=== PATIENT | male | born 1935 | race Caucasian/White ===

== ENCOUNTER → 2018-04-15 10:36 | Outpatient (CLI) | payer OTHER, SELFPAY ==
[2018-04-15 11:15] LABS: INR 2.4 (0.9-1.3); Prothrombin Time 25.6 SECONDS (10.1-12.7)
== END ==
PROVIDERS: PCP Family Medicine; Visit Provider Family Medicine
DX: Z86.718 Personal history of other venous thrombosis and embolism (principal)
CPT/HCPCS: 85610

== ENCOUNTER → 2018-05-20 11:56 | Outpatient (CLI) | payer OTHER, SELFPAY ==
[2018-05-20 12:50] LABS: Prothrombin Time 32.8 SECONDS (10.1-12.7)
== END ==
PROVIDERS: PCP Family Medicine; Visit Provider Family Medicine
DX: Z86.718 Personal history of other venous thrombosis and embolism (principal); I48.91 Unspecified atrial fibrillation
CPT/HCPCS: 36415; 85610

== ENCOUNTER → 2018-06-03 11:50 | Outpatient (CLI) | payer OTHER, SELFPAY ==
[2018-06-03 13:28] LABS: INR 1.9 (0.9-1.3)
== END ==
PROVIDERS: PCP Family Medicine; Visit Provider Family Medicine
DX: I48.91 Unspecified atrial fibrillation (principal)
CPT/HCPCS: 36415; 85610

== ENCOUNTER → 2018-06-10 11:27 | Outpatient (CLI) | payer OTHER, SELFPAY ==
[2018-06-10 12:31] LABS: INR 1.8 (0.9-1.3); Prothrombin Time 19.9 SECONDS (10.1-12.7)
== END ==
PROVIDERS: PCP Family Medicine; Visit Provider Family Medicine
DX: I48.2 Chronic atrial fibrillation (principal); Z86.718 Personal history of other venous thrombosis and embolism
CPT/HCPCS: 36415; 85610

== ENCOUNTER → 2018-06-22 15:26 | Outpatient (CLI) | payer OTHER, SELFPAY ==
[2018-06-22 17:08] LABS: INR 3.4 (0.9-1.3); Prothrombin Time 37.5 SECONDS (10.1-12.7)
== END ==
PROVIDERS: PCP Family Medicine; Visit Provider Family Medicine
DX: Z86.718 Personal history of other venous thrombosis and embolism (principal); I48.2 Chronic atrial fibrillation
CPT/HCPCS: 36415; 85610

== ENCOUNTER → 2018-07-01 11:47 | Outpatient (CLI) | payer OTHER, SELFPAY ==
[2018-07-01 14:01] LABS: INR 2.1 (0.9-1.3)
== END ==
PROVIDERS: PCP Family Medicine; Visit Provider Family Medicine
DX: Z86.718 Personal history of other venous thrombosis and embolism (principal); I48.91 Unspecified atrial fibrillation
CPT/HCPCS: 36415; 85610

== ENCOUNTER → 2018-07-23 12:31 | Outpatient (CLI) | payer OTHER, SELFPAY ==
[2018-07-23 13:02] LABS: INR 2.3 (0.9-1.3); Prothrombin Time 25.2 SECONDS (10.1-12.7)
== END ==
PROVIDERS: PCP Family Medicine; Visit Provider Family Medicine
DX: I48.91 Unspecified atrial fibrillation (principal)
CPT/HCPCS: 36415; 85610

== ENCOUNTER → 2018-08-20 15:01 | Outpatient (CLI) | payer OTHER, SELFPAY ==
[2018-08-20 15:21] LABS: INR 2.5 (0.9-1.3); Prothrombin Time 27.6 SECONDS (10.1-12.7)
== END ==
PROVIDERS: PCP Family Medicine; Visit Provider Student in an Organized Health Care Education/Training Program
DX: I48.91 Unspecified atrial fibrillation (principal)
CPT/HCPCS: 36415; 85610

== ENCOUNTER 2018-08-31 10:24 | Emergency (ER) | payer OTHER, SELFPAY ==
[2018-08-31] VITALS (29 sets, daily range): BP systolic 85–113; BP diastolic 58–85; PULSE 53–142; RESP 12–22; TEMP 37; O2SAT 94–100
--- NOTE | 2018-08-31 10:42 | DI.RAD.S_ITS ---
PROCEDURE: XR CHEST 1V INDICATIONS: chest pain TECHNIQUE: One view of the chest was acquired. COMPARISON: [facility], CT, PE STUDY (CTA CHEST), 11/05/2013, 17:46. [facility], CR, CHEST 1 VIEW, 12/03/2010, 12:36. [facility], CR, CHEST 1 VIEW, 11/05/2013, 16:13. [facility], , CHEST 1 VIEW, 02/13/2016, 19:44. FINDINGS: Surgical changes and devices: None. Lungs and pleura: No pleural effusions or pneumothorax. Lungs are clear. Mediastinum: The cardiac contours are within normal limits. The aorta demonstrates calcification and tortuosity. Bones and chest wall: Age-appropriate bony degenerative changes are seen. No suspicious bony lesions. Overlying soft tissues appear unremarkable. IMPRESSION: Unremarkable portable chest for age. Dictated by: Bhaskar García M.D. on 08/31/2018 at 10:04 Approved by: Bhaskar García M.D. on 08/31/2018 at 10:05
--- NOTE | 2018-08-31 10:44 | ED_ITS ---
HPI - Arrhythmia/Palpitations General Chief Complaint: Arrhythmia/Palpitations Stated Complaint: AFIB Time Seen by Provider: 08/31/18 10:43 Source: patient and family Mode of arrival: ambulatory Limitations: no limitations History of Present Illness HPI narrative: Pt c/o his atrial fibrillation acting up again. He has a long- standing history of this, and has been cardioverted several times, due to hypotension (though pt states his blood pressure is always in the low range). Pt began to feel a sense of palpitations about an hour ago. No CP or SOB. No n /v. Otherwise, pt has been feeling well. MD complaint: palpitations Onset (ago): hour(s) Duration: constant Severity: mild Context: occurred during rest Arrhythmia history: atrial fibrillation, on anti-coagulants and history of electrical cardioversion Associated symptoms: denies other symptoms Treatments prior to arrival: other (none) Related Data Home Medications Medication Instructions Recorded Confirmed dorzolamide-timolol 1 drp OPHTHALMIC (EYE) BID 08/31/18 08/31/18 latanoprost 1 drp OPHTHALMIC (EYE) BEDTIME 08/31/18 08/31/18 simvastatin 20 mg PO QPM 08/31/18 08/31/18 warfarin [Coumadin] 2.5 mg PO MOFR 08/31/18 08/31/18 warfarin [Coumadin] 5 mg PO SUTUWETHSA 08/31/18 08/31/18 Allergies Allergy/AdvReac Type Severity Reaction Status Date / Time No Known Drug Allergies Allergy Verified 08/27/18 15:06 Review of Systems Review of Systems All systems reviewed & are unremarkable except as noted in HPI and below Constitutional Denies chills, Denies fever(s), Denies lethargy and Denies weakness Eyes Denies change in vision, Denies eye discharge, Denies irritation and Denies loss of vision ENT Ears, Nose, Mouth, and Throat: Denies change in voice, Denies neck pain and Denies sore throat Cardiovascular Denies chest pain, Denies irregular heart rhythm, Denies lightheadedness, Reports palpitations, Denies dyspnea, Denies dyspnea on exertion and Denies orthopnea Respiratory Denies cough, Denies dyspnea, Denies dyspnea on exertion and Denies wheezing Gastrointestinal Gastrointestinal: Denies abdominal pain, Denies change in bowel habits, Denies diarrhea, Denies nausea and Denies vomiting Genitourinary Denies hematuria, Denies flank pain, Denies urinary incontinence and Denies urinary urgency Musculoskeletal Denies neck pain Integumentary/Breasts Denies pruritus, Denies erythema, Denies rash and Denies wounds Neurologic Denies confusion, Denies loss of vision and Denies weakness Psychiatric Denies anxiety, Denies confusion, Denies depression, Denies homicidal ideation and Denies suicidal ideation Endocrine Reports palpitations Hematologic/Lymphatic Denies easy bruising Allergic/Immunologic Denies wheezing [facility] Medical History Atrial fibrillation (Chronic 2009) Coronary artery disease (Chronic) Factor V Leiden (Chronic) Hyperlipidemia (Chronic) Hypothyroidism (Chronic) Low back pain (Chronic) Osteoarthritis (Chronic ~2015) Polyneuropathy (Chronic 1991) Sleep apnea (Chronic 2003) Acne (Resolved) Basal cell carcinoma (Resolved) CHF (congestive heart failure) (Resolved ~01/2012) Cataracts, bilateral (Resolved 1997) Colon polyps (Resolved 09/2008) Hx of deep venous thrombosis (Resolved) Prostate cancer (Resolved 2000) Retinal detachment (Resolved ~1992) Skin cancer (Resolved) Surgical History Hx of colonoscopy with polypectomy (Resolved 09/2008) Hx of detached retina repair (Resolved ~1992) History of cataract removal with insertion of prosthetic lens (1997) Status post hernia repair (1999) Status post radical cystoprostatectomy (2000) Family History Brother Heart disease Brother Cancer Sister No problems noted. Father Cancer Mother No problems noted. Social History Smoking Status: Never smoker alcohol intake: never substance use type: does not use Exam Initial Vital Signs Initial Vital Signs: Vital Signs Temperature 98.6 F 08/31/18 10:25 Pulse Rate 138 H 08/31/18 10:25 Respiratory Rate 18 08/31/18 10:25 Blood Pressure 105/70 08/31/18 10:25 Pulse Oximetry 98 08/31/18 10:25 Const General: cooperative and well developed Nutritional Appearance: well nourished Orientation: alert, awake, oriented x3 and not confused HENMT Head: normocephalic and atraumatic Ears: external ears normal and TM's normal bilaterally Nose: external nose normal and No nasal discharge Face and sinus: sinuses nontender, face symmetric, no sinus tenderness and No dry mucous membranes Mouth: oral mucosae normal and moist mucous membranes Teeth and gingiva: dentition normal Throat: tonsils normal and uvula midline Eyes General: appearance normal, both eyes and all related structures Eyelids: eyelids normal Conjunctivae: conjunctivae normal Sclera: sclerae normal Pupils: PERRL EOM: EOM intact bilaterally Neck Neck: normal visual inspection, trachea midline, No lymphadenopathy, No midline deformity and No JVD Lymphatic: No lymphedema Chest Chest: normal inspection of the chest Resp Effort & Inspection: normal respiratory effort, able to speak in complete sentences, no respiratory distress and no use of accessory muscles Auscultation: clear to auscultation bilaterally, no rales, no rhonchi and no wheezes Cardio Rate: tachycardic Rhythm: abnormal rhythm irregularly irregular Heart Sounds: no click, no gallops, no murmurs and no rubs Pulses: normal peripheral pulses GI Inspection: non-distended Palpation: soft, no hepatosplenomegaly, No guarding, No pulsatile mass and No tender Auscultation: normal bowel sounds Back/Spine/Pelvis Back: No CVA tenderness Cervical Spine: cervical ROM normal and No pain with cervical ROM Thoracic/Lumbar Spine: thoracic and lumbar spine normal to inspection Skin General: no rashes or lesions noted, No jaundice and No petechiae Neuro General: alert, oriented x3, gait normal and no focal motor deficits Speech: speech normal Extrem General: full ROM, no clubbing, cyanosis or edema, no pedal edema and no calf tenderness Psych Appearance: well kempt Mental Status: mental status grossly normal Attitude: cooperative Thought Content: normal and suicidality Judgment: judgment good Procedures Cardioversion Indication: Unstable a. fib with RVR. Cardiac rhythm prior to cardioversion: atrial fibrillation with RVR. Stability: Unstable ASA Class: I Preparation: satellite project site monitor applied, pulse oximeter, capnometry used, supplemental O2 applied, suction/airway equipment at bedside and IV secured Midazolam: IV Midazolam Dose: 5 (2.5 + 2.5 mg) Total Time of Sedation (Min): 10 Number of attempts (shocks): 1 Joules used: 50 ED Sedation Level: Moderate (Concious) Cardiac rhythm post-cardioversion: NSR Patient tolerated procedure sedation: Well Complications sedation: none Additional Comments: RT at bedside. Course Course Narrative: PT was treated with IV fluids, and once the SBP was above 100 , pt was treated with small doses of diltiazem. Pt did initially respond well, but rate crept back up repeatedly, and pt did not convert to NSR. Given that he has a h/o paroxysmal a. fib, I felt pt should be cardioverted, and the pt had repeatedly expressed the desire for this, as well. Pt was cardioverted with 50 joules after sedation with Versed, after which he immediately converted to NSR. Pt was observed in the ED until the Versed had worn off. Pt remained stable during this time, and was cleared for discharge. Orders Ordered: Discontinued Medications Diltiazem HCl (Cardizem) 5 mg IV NOW ONE Stop: 08/31/18 11:11 Last Admin: 08/31/18 11:12 Dose: 5 mg Diltiazem HCl (Cardizem) 5 mg IV NOW ONE Stop: 08/31/18 11:34 Last Admin: 08/31/18 11:36 Dose: 5 mg Sodium Chloride (Normal Saline 0.9%) 1,000 mls @ 500 mls/hr IV BOLUS ONE Stop: 08/31/18 12:44 Last Infusion: 08/31/18 12:16 Dose: 0 mls/hr Infusion: 08/31/18 11:14 Dose: 1,000 mls/hr Admin: 08/31/18 10:51 Dose: 500 mls/hr Midazolam HCl (Versed) 5 mg IV NOW ONE Stop: 08/31/18 13:01 Last Admin: 08/31/18 13:00 Dose: 5 mg MDM - Arrhythmia/Palpitations Medical Records Attestation: I reviewed the patient's medical records. Lab Data Attestation: I reviewed the patient's lab results. Result diagrams: 08/31/18 10:40 08/31/18 10:40 Lab Results 08/31/18 08/31/18 08/31/18 Range/Units 10:40 10:40 10:40 WBC 4.3 L (4.5-11.0) X10^3/uL RBC 4.70 (4.5-5.9) X10^6/uL Hgb 15.5 (13.5-17.5) g/dL Hct 45.1 (41-53) % MCV 95.9 (80-100) fL MCH 32.9 (26-34) PG MCHC 34.3 (30-36) % RDW 13.6 (11.6-14.8) % Plt Count 155 (150-400) X10^3/uL Neut % (Auto) 63.3 (50-75) % Lymph % (Auto) 25.2 (25-40) % [place] % (Auto) 9.5 (3-14) % Eos % (Auto) 1.6 L (2-4) % Baso % (Auto) 0.4 (0-2) % Neut # (Auto) 2700 L (4106-0588) /uL PT 29.9 H (10.1-12.7) SECONDS INR 2.7 H (0.9-1.3) APTT 40 H (26.4-36.2) SECONDS Sodium 145 (137-145) mmol/L Potassium 4.1 (3.4-5.1) mmol/L Chloride 108 H (98-107) mmol/L Carbon Dioxide 28 (22-32) mmol/L BUN 21 H (9-20) mg/dL Creatinine 1.20 (0.66-1.25) mg/dL Estimated GFR 58.1 L (>60) mL/min BUN/Creatinine Ratio 17.5 (6-22) Glucose 112 H (80-110) mg/dL Calcium 8.4 (8.4-10.2) mg/dL Total Bilirubin 0.9 (0.2-1.3) mg/dL AST 22 (17-59) IU/L ALT 19 L (21-72) IU/L Alkaline Phosphatase 55 (38-126) U/L Total Creatine Kinase 47 L (55-170) U/L CK-MB (CK-2) TNP CK-MB (CK-2) Rel Index TNP Troponin I 0.015 (0.01-0.034) ng/mL Total Protein 6.0 L (6.3-8.2) g/dL Albumin 3.5 (3.5-5.0) g/dL Globulin 2.5 (1.7-4.1) g/dL Albumin/Globulin Ratio 1.4 (1.0-2.8) Lipase 126 (23-300) U/L ECG Data Attestation: I personally reviewed and interpreted this ECG as follows: (atrial fib with RVR) Interpretation: 12-lead EKG at 10:31 Irreg rate at 133 bpm HI none QRS 95ms QTc 368ms Interpretation: A. fib with RVR, LAD, T-wave abn, abnormal EKG, as interpreted by EDMD. Discharge Plan Departure Patient Disposition: Home Clinical Impression: Paroxysmal atrial fibrillation with rapid ventricular response, Acute hypotension, Encounter for cardioversion procedure Discharge Date/Time: 08/31/18 14:58 Interventions: ED Discharge Assessment Last Done: 08/31/18 14:57 Instructions: DI for Atrial Fibrillation Activity Restrictions/Additional Instructions: Your labs and x-rays look good today. You responded very well to the electrical cardioversion, and your heart is back in a normal rhythm. It would be a good idea for you to follow up with your geophysical data technician within the next couple of weeks to discuss whether you need to be on medication for the atrial fibrillation. However, since your episodes of atrial fibrillation are quite rare, we will not start any new medication from the emergency department. Given that you have been sedated today, you should not drive or operate heavy equipment for the next 24 hr. Additionally, you should not make any important decisions for the next 24 hr. Prescriptions: No Action latanoprost 0.005 % Drops 1 drp ophthalmic (eye) BEDTIME RF: 0 dorzolamide-timolol 22.3-6.8 mg/mL Drops 1 drp ophthalmic (eye) BID RF: 0 warfarin [Coumadin] 5 mg Tablet 2.5 mg PO MOFR RF: 0 simvastatin 20 mg tablet 20 mg PO QPM RF: 0 warfarin [Coumadin] 5 mg tablet 5 mg PO SUTUWETHSA RF: 0 Referrals: Wood Moreno MD [Primary Care Provider] -
[2018-08-31 10:48] LABS: Add Manual Diff / Slide Review NO; Basophils Percent Auto 0.4 % (0-2); Eosinophils Percent Auto 1.6 % (2-4); Hematocrit 45.1 % (41-53); Hemoglobin 15.5 g/dL (13.5-17.5); Lymphocytes Percent Auto 25.2 % (25-40); Mean Corpuscular HGB Conc 34.3 % (30-36); Mean Corpuscular Hemoglobin 32.9 PG (26-34); Mean Corpuscular Volume 95.9 fL (80-100); Monocytes Percent Auto 9.5 % (3-14); Neutrophils Absolute Auto 2700 /uL (3000-5900); Neutrophils Percent Auto 63.3 % (50-75); Platelet Count 155 X10^3/uL (150-400); Red Cell Distribution Width 13.6 % (11.6-14.8); White Blood Cell Count 4.3 X10^3/uL (4.5-11.0)
[2018-08-31 10:51] LABS: INR 2.7 (0.9-1.3); Prothrombin Time 29.9 SECONDS (10.1-12.7)
[2018-08-31] MEDS: SODIUM CHLORIDE 0.9% 1,000 ML 500 ML IV (10:51)
[2018-08-31 10:54] LABS: PTT Partial Thromboplastin Tim 40 SECONDS (26.4-36.2)
[2018-08-31 10:55] LABS: Alanine Aminotransferase 19 IU/L (21-72); Albumin 3.5 g/dL (3.5-5.0); Albumin Globulin Ratio 1.4 (1.0-2.8); Alkaline Phosphatase 55 U/L (38-126); Aspartate Aminotransferase 22 IU/L (17-59); BUN Creatinine Ratio 17.5 (6-22); Bilirubin Total 0.9 mg/dL (0.2-1.3); Blood Urea Nitrogen 21 mg/dL (9-20); Calcium 8.4 mg/dL (8.4-10.2); Carbon Dioxide 28 mmol/L (22-32); Chloride 108 mmol/L (98-107); Creatine Kinase 47 U/L (55-170); Estimated Glomerular Filt Rate 58.1 mL/min (>60); Globulin 2.5 g/dL (1.7-4.1); Glucose 112 mg/dL (80-110); HEMOLYSIS 16 (0-50); Lipase 126 U/L (23-300); Potassium 4.1 mmol/L (3.4-5.1); Sodium 145 mmol/L (137-145)
[2018-08-31 11:07] LABS: Troponin I 0.015 ng/mL (0.01-0.034)
[2018-08-31] MEDS: dilTIAZem 5 MG/ML SDV IV ×2 (11:12→11:36)
[2018-08-31] MEDS: MIDAZOLAM 5 MG/5 ML VIAL IV (13:00)
== END 2018-08-31 14:58 | disposition home or self-care (01) ==
PROVIDERS: Emergency Provider Emergency Medicine; PCP Student in an Organized Health Care Education/Training Program
DX: I48.0 Paroxysmal atrial fibrillation (principal); I95.9 Hypotension, unspecified
CPT/HCPCS: 71045; 80053; 82550; 83690; 84484; 85025; 85610; 85730; 92960; 93005; 94770; 96361; 96374; 99152; 99285; J2250

== ENCOUNTER → 2018-09-08 11:43 | Outpatient (CLI) | payer OTHER, SELFPAY ==
--- NOTE | 2018-09-08 11:48 | DI.MRI.S_ITS ---
PROCEDURE: MR KNEE RT WO CON INDICATIONS: Right lateral knee pain TECHNIQUE: Noncontrast sagittal PD fast spin echo and T2 fast spin echo with fat saturation, sagittal 3-D FLASH with fat saturation; coronal T1 spin echo and PD fast spin echo with fat saturation, and axial PD fast spin echo with fat saturation through the knee. COMPARISON: None. FINDINGS: Image quality: Excellent. Menisci: The medial and lateral menisci demonstrate extensively degenerated morphology and internal signal, and there is a posterior horn lateral meniscal tear that is diagonally oriented and somewhat stellate at the posterior horn and midbody junction. Displaced meniscal fragments are not seen. The meniscal root ligaments appear intact. Cruciate ligaments: The anterior and posterior cruciate ligaments appear free of complete disruption but there is striated elevated fluid signal within the substance of the posterior cruciate ligament, and the anterior cruciate ligament fiber levels are indistinct, potentially a manifestation of prior healed ACL tear. An acute ACL tear is not suspected. Medial structures: The medial collateral ligament appears intact. The posterior oblique ligament, semimembranosus tendon insertions, oblique popliteal ligament, and meniscocapsular junction appear intact. Visualized portions of the pes anserinus tendons appear normal. No abnormal bursal fluid. Lateral structures: The lateral collateral ligament, long and short heads of the biceps femoris tendon appear intact. The popliteus tendon appears normal; the popliteofibular ligament appears intact. The posterosuperior and anteroinferior popliteomeniscal fascicles appear intact. The arcuate and fabellofibular ligaments appear intact, on either side of the lateral inferior geniculate artery. Iliotibial band appears normal. Anterior structures: The quadriceps and patellar tendons appear intact although there is elevated fluid signal within the anterior tibia adjacent to the patellar tendon insertion. It is unclear whether this represents reactive enthesopathy or evidence of coincidental blunt trauma to that site.. Patellar alignment is normal. No femoral trochlear dysplasia or ventral trochlear prominence. No edema in the infrapatellar fat pad. Bones and cartilage: No bone marrow contusions or fractures. The cartilage of the medial and lateral femorotibial compartments, as well as the patellofemoral compartment, appears significantly reduced in thickness with associated osteophytic spurring along the borders of the medial and lateral compartments and at the lateral facet of the patellofemoral joint. Joint space: There is moderate excess of knee joint fluid with a 3 mm intra-articular loose body of the lateral recess of the suprapatellar bursal space. No Savage's cyst. Normal appearing synovial plicae are incidentally noted. IMPRESSION: 1. Extensively degenerated articular cartilage is present in this patient with moderately severe tricompartmental degenerative osteoarthritis. 2. There is associated degenerative internal signal and morphology of the menisci, most prominent at the lateral meniscus where a diagonally oriented posterior horn a tear and additional small posterior horn/midbody junction stellate meniscal tears can be seen, nondisplaced. 3. Striated fluid signal within the posterior cruciate ligament which appears lax, suspect prior but healed anterior cruciate tear from the distant past. 4. Mild to moderate knee joint effusion, 3 mm intra-articular loose body within the lateral recess of the suprapatellar bursal space. 5. Focal marrow edema present immediately adjacent to the patellar tendon insertion on the anterior tibia, either representing evidence of focal enthesopathy or possibly focal trauma to that site with bone bruising. Dictated by: Hoang Spears M.D. on 09/08/2018 at 15:11 Approved by: Hoang Spears M.D. on 09/08/2018 at 15:18
== END ==
PROVIDERS: PCP Student in an Organized Health Care Education/Training Program; Visit Provider Student in an Organized Health Care Education/Training Program
DX: M23.251 Derangement of posterior horn of lateral meniscus due to old tear or injury, right knee (principal); M17.11 Unilateral primary osteoarthritis, right knee; M25.561 Pain in right knee; M25.461 Effusion, right knee
CPT/HCPCS: 73721

== ENCOUNTER → 2018-09-17 10:27 | Outpatient (CLI) | payer OTHER, SELFPAY ==
[2018-09-17 11:25] LABS: INR 2.4 (0.9-1.3); Prothrombin Time 26.1 SECONDS (10.1-12.7)
[2018-09-17 11:30] LABS: BUN Creatinine Ratio 16.4 (6-22); Blood Urea Nitrogen 18 mg/dL (9-20); Calcium 8.8 mg/dL (8.4-10.2); Carbon Dioxide 30 mmol/L (22-32); Chloride 108 mmol/L (98-107); Estimated Glomerular Filt Rate > 60.0 mL/min (>60); Glucose 96 mg/dL (80-110); HEMOLYSIS < 15 (0-50); Potassium 4.8 mmol/L (3.4-5.1); Sodium 144 mmol/L (137-145)
[2018-09-17 12:00] LABS: Thyroid Stimulating Hormone 0.93 uIU/mL (0.47-4.68)
== END ==
PROVIDERS: Family Provider Student in an Organized Health Care Education/Training Program; PCP Student in an Organized Health Care Education/Training Program; Visit Provider Physician Assistant
DX: I48.0 Paroxysmal atrial fibrillation (principal); Z79.01 Long term (current) use of anticoagulants; Z86.718 Personal history of other venous thrombosis and embolism
CPT/HCPCS: 36415; 80048; 84443; 85610

== ENCOUNTER → 2018-09-22 13:52 | Outpatient (CLI) | payer OTHER, SELFPAY ==
--- NOTE | 2018-09-22 | DI.ECHO.S_ITS ---
[facility] +---------+ : : [id number] [place] : : : : [id number] : : : : Phone: [phone] Echocardiogram Report + + :Name: IAN TORO Study Date: 09/22/2018 Height: 77 in : :[facility] Weight: 266 lb : : Gender: Male BSA: 2.5 m2 : :: 1935 Age: 83 yrs BP: 118/60 mmHg: :Reason For Study: Atrial fibrillation - paroxysmal : :Ordering Physician: Drew eNgrete : :Michelle Performed By: Maria Del Carmen Atkins : + + Interpretation Summary 1) Normal left ventricular thickness, size, and systolic function (EF 55-60%). 2) Grossly normal right ventricular size and function. 3) No significant valvular abnormalities. 4) No prior Echo available for comparison. Procedure: A two-dimensional transthoracic echocardiogram with color flow and Doppler was performed. The study quality was technically adequate. Comparison is made with the echocardiogram of 11-10-13. The heart rate ranged between 54-55 bpm during the study. Left Ventricle: The left ventricle is normal in size, wall thickness, and systolic function without any focal wall motion abnormalities. The ejection fraction is estimated to be 55-60%. Septal motion is consistent with conduction abnormality. Right Ventricle: The right ventricle grossly appears normal in size with probable normal systolic function. Atria: The left atrial size is normal. Right atrial size is normal. The interatrial septum is intact with no evidence for an atrial septal defect. Mitral Valve: The mitral valve leaflets appear borderline thickened, but open well. There is trace mitral regurgitation. Aortic Valve: The aortic valve is trileaflet. The aortic valve opens well. There is no aortic valve stenosis. No aortic regurgitation is present. Tricuspid Valve: The tricuspid valve leaflets are thin and pliable. There is mild tricuspid regurgitation. The right ventricular systolic pressure is estimated to be at least 27 mmHg based on an estimated right atrial pressure of 3 mm Hg. Pulmonic Valve: The pulmonic valve is normal in structure and function. There is trace pulmonic regurgitation. Great Vessels: The aortic root is mildly dilated. The dimensions of the ascending aorta are normal. The ascending aorta is at the upper limits of normal in size. The IVC is of normal diameter and collapses greater than 50% with a sniff. This suggests a low right atrial pressure of 3 mm Hg. Pericardium/ Pleura There is no pericardial effusion. There is no pleural effusion. MMode/2D Measurements & Calculations LVIDd: 5.1 cm Ao root diam: 4.1 cm LVIDs: 3.3 cm Aortic Jxn: 3.3 cm FS: 35.2 % asc Aorta Diam: 3.0 cm EPSS: 1.0 cm Ao Arch Diam (Prox Trans): 3.5 cm IVSd: 0.83 cm LVPWd: 0.99 cm LV post. diameter/BSA (cm/m^2): 2.0 LV sys. diameter/BSA (cm/m^2): 1.3 LA dimension: 3.7 cm RA long axis: 5.6 cm LA A2 area: 17.4 cm2 RA area: 21.0 cm2 LA A4 area: 20.8 cm2 RA vol: 67.2 ml LA length (vol): 5.7 cm RA : 26.6 ml/m2 LA vol: 53.6 ml IVC diam: 1.1 cm LA vol index: 21.2 ml/m2 RVDd major: 5.3 cm RVD1 (basal): 4.5 cm RVD2 (mid): 3.7 cm Doppler Measurements & Calculations Ao V2 max: 108.9 cm/sec LVOT Max Pablito: 68.2 cm/sec Ao V2 mean: 77.1 cm/sec LV V1 max P.9 mmHg Ao max P.7 mmHg LV V1 VTI: 15.2 cm Ao mean P.6 mmHg sev ratio: 0.60 Ao V2 VTI: 25.2 cm MV E max pablito: 50.4 cm/sec TR max pablito: 243.6 cm/sec MV A max pablito: 49.5 cm/sec TR max P.7 mmHg MV E/A: 1.0 PA Accel Time: 0.18 sec Med Peak E' Pablito: 3.9 cm/sec E/E' med: 12.9 Lat Peak E' Pablito: 6.9 cm/sec E/E' lat: 7.2 E/e' average: 10.1 MV dec time: 0.14 sec MV P1/2t: 41.7 msec MV P1/2t max pablito: 50.0 cm/sec MVA(P1/2t): 5.3 cm2 Reading Physician:03:31 PM
== END ==
PROVIDERS: Family Provider Internal Medicine Cardiovascular Disease; PCP Student in an Organized Health Care Education/Training Program; Visit Provider Physician Assistant
DX: I07.1 Rheumatic tricuspid insufficiency (principal); I48.0 Paroxysmal atrial fibrillation
CPT/HCPCS: 93306

== ENCOUNTER 2018-10-13 16:01 | Emergency (ER) | payer OTHER, SELFPAY ==
[2018-10-13] VITALS (15 sets, daily range): BP systolic 101–137; BP diastolic 73–94; PULSE 56–145; RESP 12–20; TEMP 37.1; O2SAT 90–99; BMI 29.6
--- NOTE | 2018-10-13 16:25 | DI.RAD.S_ITS ---
PROCEDURE: XR CHEST 1V INDICATIONS: CHEST PAIN TECHNIQUE: One view of the chest was acquired. COMPARISON: [facility], CR, XR CHEST 1V, 08/31/2018, 10:51. FINDINGS: Surgical changes and devices: None. Lungs and pleura: No pleural effusions or pneumothorax. Lungs are clear. Mediastinum: Mediastinal contours appear normal. Heart size is normal. Bones and chest wall: No suspicious bony lesions. Overlying soft tissues appear unremarkable. Bilateral shoulder joint degeneration. Diffuse discogenic changes. IMPRESSION: No acute disease. Dictated by: Ketan Hanna M.D. on 10/13/2018 at 16:46 Approved by: Ketan Hanna M.D. on 10/13/2018 at 16:48
[2018-10-13] MEDS: SODIUM CHLORIDE 0.9% 1,000 ML 150 ML IV (16:36)
[2018-10-13 16:42] LABS: BUN Creatinine Ratio 15.4 (6-22); Blood Urea Nitrogen 20 mg/dL (9-20); Calcium 8.5 mg/dL (8.4-10.2); Carbon Dioxide 26 mmol/L (22-32); Chloride 108 mmol/L (98-107); Creatine Kinase 53 U/L (55-170); Glucose 103 mg/dL (80-110); HEMOLYSIS 17 (0-50); Magnesium 1.9 mg/dL (1.6-2.3); Potassium 4.4 mmol/L (3.4-5.1); Sodium 144 mmol/L (137-145)
[2018-10-13 16:44] LABS: Add Manual Diff / Slide Review NO; Basophils Percent Auto 0.6 % (0-2); Eosinophils Percent Auto 1.9 % (2-4); Hematocrit 47.9 % (41-53); Hemoglobin 15.9 g/dL (13.5-17.5); Lymphocytes Percent Auto 29.8 % (25-40); Mean Corpuscular HGB Conc 33.2 % (30-36); Mean Corpuscular Hemoglobin 32.1 PG (26-34); Mean Corpuscular Volume 96.7 fL (80-100); Monocytes Percent Auto 9.1 % (3-14); Neutrophils Absolute Auto 2900 /uL (3000-5900); Neutrophils Percent Auto 58.6 % (50-75); Platelet Count 169 X10^3/uL (150-400); Red Blood Cell Count 4.96 X10^6/uL (4.5-5.9); Red Cell Distribution Width 13.6 % (11.6-14.8); White Blood Cell Count 4.9 X10^3/uL (4.5-11.0)
[2018-10-13 16:54] LABS: Troponin I < 0.012 ng/mL (0.01-0.034)
--- NOTE | 2018-10-13 16:57 | ED_ITS ---
HPI - Arrhythmia/Palpitations General Chief Complaint: Arrhythmia/Palpitations Stated Complaint: irregular heart rate Time Seen by Provider: 10/13/18 16:09 Source: patient and old records reviewed Mode of arrival: ambulatory Limitations: no limitations History of Present Illness HPI narrative: Patient is a 83-year-old male who presents with AFib as. He he has felt fatigued yesterday and today. He took off his heart rate her this evening a then realized that it was racing. He really denies any chest pain. He has been cardioverted multiple times his last was 08/31/2018 due to hypotension. He is again hypotensive with a heart rate in the 150s and blood pressure with a systolic in the 90s. He said he was previously on amiodarone 2 years ago he was taken off of it though he remains on Coumadin. He said that he has been doing well in till lately. 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 It says is though after further conversation that did not tolerate beta- shayy due to bradycardia, not sure about Cardizem. MD complaint: atrial fibrillation Severity: mild Arrhythmia history: atrial fibrillation Associated symptoms: denies other symptoms Related Data Home Medications Medication Instructions Recorded Confirmed dorzolamide-timolol 1 drp OPHTHALMIC (EYE) BID 08/31/18 10/13/18 latanoprost 1 drp OPHTHALMIC (EYE) BEDTIME 08/31/18 10/13/18 warfarin [Coumadin] 2.5 mg PO MOFR 08/31/18 10/13/18 warfarin [Coumadin] 5 mg PO SUTUWETHSA 08/31/18 10/13/18 Previous Rx's Medication Instructions Recorded metoprolol tartrate 25 mg PO BID #60 tab 10/13/18 simvastatin 20 mg tablet 20 mg PO QPM #90 tab 10/13/18 Allergies Allergy/AdvReac Type Severity Reaction Status Date / Time No Known Drug Allergies Allergy Verified 10/13/18 16:30 Review of Systems Review of Systems GENERAL: Denies chills, fatigue, malaise, fever, sweats, travel HEENT: Denies sinus pain, ear pain, sore throat, difficulty swallowing, neck pain RESPIRATORY: Denies dyspnea, cough, wheezing, hemoptysis, sputum. CARDIOVASCULAR: See HPI GASTROINTESTINAL: Denies nausea, vomiting, abdominal pain, diarrhea, constipation, melena. : Denies dysuria, frequency, incontinence, hematuria, urinary retention, flank pain. MUSCULOSKELETAL: Denies weakness, joint pain, or bony pain SKIN: No rash, no erythema, no pruritus NEUROLOGIC: Denies weakness, dizziness, headache, numbness, change in speech, confusion PSYCHIATRIC: No concerning psychosocial issues. 12 point review of systems is negative except for those stated above and HPI [facility] Social History Smoking Status: Never smoker alcohol intake: never substance use type: does not use Exam Initial Vital Signs Initial Vital Signs: Vital Signs Temperature 98.7 F 10/13/18 16:05 Pulse Rate 145 H 10/13/18 16:05 Respiratory Rate 20 10/13/18 16:05 Blood Pressure 125/82 10/13/18 16:05 Pulse Oximetry 96 10/13/18 16:05 GENERAL: very pleasant elderly male alert and oriented x3 HEENT: Head atraumatic,EOMI, pupils reactive, no JVD neck is supple CARDIOVASCULAR: irregularly irregular tachycardic no murmurs RESPIRATORY: Breath sounds equal bilaterally, no wheezes rales or rhonchi. ABDOMEN: Soft, nontender. Normoactive bowel sounds all 4 quadrants. No guarding or rebound. EXTREMITIES: Normal range of motion, no clubbing or edema. Neurovascularly intact NEUROLOGICAL: Alert and oriented x4.Normal gait and speech. SKIN: Warm, dry, no laceration, no petechiae, no rashes or lesions. Procedures Cardioversion Indication: AFib with RVR and hypotension Cardiac rhythm prior to cardioversion: AFib with RVR Stability: Unstable ASA Class: III Mallampati Airway Classification: Class III Time of Last PO Intake: 08:00 Preparation: desk monitor applied, pulse oximeter, capnometry used, supplemental O2 applied, suction/airway equipment at bedside and IV secured IV Etomidate Dose (mgs): 11.3 Total Time of Sedation (Min): 15 Number of attempts (shocks): 1 Joules used: 120 ED Sedation Level: Moderate (Concious) Cardiac rhythm post-cardioversion: normal sinus rhythm Patient tolerated procedure sedation: Well Complications sedation: hypoventilation Interventions: Airway repositioned Procedural Sedation Patient Age: Patient is 5yrs or older Indication: other ( AFib with RVR) ASA Class: III Mallampati Airway Classification: Class II Preparation: desk monitor applied, pulse oximeter, capnometry used, supplemental O2 applied and IV secured IV Etomidate dose (mg): 11.3 Time of Sedation (Min): 15 ED Sedation Level: Moderate (Concious) Patient Tolerated Procedure: Well Complications: hypoventilation Interventions: Airway repositioned Course Orders Ordered: ED Orders 10/13/18 16:25 XR chest 1V Stat Basic Metabolic Panel Stat Complete Blood Count AUTO DIFF Stat Magnesium Stat Thyroid Stimulating Hormone Stat Troponin & CK Cardiac Panel Stat EKG-12 Lead Stat Sodium Chloride (Normal Saline 0.9%) 1,000 mls @ 150 mls/hr IV CONT MARLEEN Last Infusion: 10/13/18 18:10 Dose: 0 mls/hr Admin: 10/13/18 16:36 Dose: 150 mls/hr Discontinued Medications Diltiazem HCl (Cardizem) 10 mg IV NOW ONE Stop: 10/13/18 16:25 Last Admin: 10/13/18 17:58 Dose: Diltiazem HCl (Cardizem) 5 mg IV NOW ONE Stop: 10/13/18 16:59 Last Admin: 10/13/18 16:59 Dose: 5 mg Etomidate (Amidate) 11.3 mg 0.1 mg/kg (11.3 mg) IV NOW ONE Stop: 10/13/18 17:05 Last Admin: 10/13/18 17:18 Dose: 11.3 mg Vital Signs - 8 hr 10/13/18 16:05 10/13/18 16:59 10/13/18 17:17 Temperature 98.7 F Pulse Rate 145 H 134 H 140 H Respiratory Rate 20 18 Blood Pressure 125/82 101/75 Blood Pressure [Right Arm] 117/87 Pulse Oximetry 96 99 10/13/18 17:19 10/13/18 17:20 10/13/18 17:23 Temperature Pulse Rate 68 68 68 Respiratory Rate 18 18 Blood Pressure Blood Pressure [Right Arm] 114/73 117/87 137/94 H Pulse Oximetry 90 L 90 L 98 10/13/18 17:28 10/13/18 17:36 10/13/18 17:40 Temperature Pulse Rate 69 59 L 56 L Respiratory Rate 20 16 16 Blood Pressure Blood Pressure [Right Arm] 112/74 110/76 113/74 Pulse Oximetry 97 97 98 10/13/18 17:41 10/13/18 17:45 10/13/18 17:50 Temperature Pulse Rate 56 L 71 73 Respiratory Rate 17 18 17 Blood Pressure Blood Pressure [Right Arm] 121/75 113/78 107/75 Pulse Oximetry 98 97 98 10/13/18 18:00 Temperature Pulse Rate 74 Respiratory Rate 12 Blood Pressure Blood Pressure [Right Arm] 106/80 Pulse Oximetry 99 MDM - Arrhythmia/Palpitations Lab Data Attestation: I reviewed the patient's lab results. Result diagrams: 10/13/18 16:25 10/13/18 16:25 Lab Results 10/13/18 10/13/18 10/13/18 Range/Units 16:25 16:25 16:25 WBC 4.9 (4.5-11.0) X10^3/uL RBC 4.96 (4.5-5.9) X10^6/uL Hgb 15.9 (13.5-17.5) g/dL Hct 47.9 (41-53) % MCV 96.7 (80-100) fL MCH 32.1 (26-34) PG MCHC 33.2 (30-36) % RDW 13.6 (11.6-14.8) % Plt Count 169 (150-400) X10^3/uL Neut % (Auto) 58.6 (50-75) % Lymph % (Auto) 29.8 (25-40) % Sevier % (Auto) 9.1 (3-14) % Eos % (Auto) 1.9 L (2-4) % Baso % (Auto) 0.6 (0-2) % Neut # (Auto) 2900 L (8419-4288) /uL Sodium 144 (137-145) mmol/L Potassium 4.4 (3.4-5.1) mmol/L Chloride 108 H (98-107) mmol/L Carbon Dioxide 26 (22-32) mmol/L BUN 20 (9-20) mg/dL Creatinine 1.30 H (0.66-1.25) mg/dL Estimated GFR 53.0 L (>60) mL/min BUN/Creatinine Ratio 15.4 (6-22) Glucose 103 (80-110) mg/dL Calcium 8.5 (8.4-10.2) mg/dL Magnesium 1.9 (1.6-2.3) mg/dL Total Creatine Kinase 53 L (55-170) U/L CK-MB (CK-2) TNP CK-MB (CK-2) Rel Index TNP Troponin I < 0.012 (0.01-0.034) ng/mL TSH 1.88 (0.47-4.68) uIU/mL Imaging Data Chest x-ray: Radiologist's impression: [address] [address] XRay Report Signed Patient: Reginaldo Venegas DMR#: [id number] : 7Acct:[id number] Age/Sex: 83 / MDate of Service: 10/13/18 Loc: ED Accession Number: [id number] Procedure: XR chest 1V Ordering Provider: Jessica Dominguez D.O. PROCEDURE: XR CHEST 1V INDICATIONS: CHEST PAIN TECHNIQUE: One view of the chest was acquired. COMPARISON: [facility], , XR CHEST 1V, 08/31/2018, 10:51. FINDINGS: Surgical changes and devices: None. Lungs and pleura: No pleural effusions or pneumothorax. Lungs are clear. Mediastinum: Mediastinal contours appear normal. Heart size is normal. Bones and chest wall: No suspicious bony lesions. Overlying soft tissues appear unremarkable. Bilateral shoulder joint degeneration. Diffuse discogenic changes. IMPRESSION: No acute disease. Dictated by: Ketan Hanna M.D. on 10/13/2018 at 16:46 ECG Data Attestation: I personally reviewed and interpreted this ECG as follows: Prior ECG tracings: available for review Interpretation: EKG 1.: AFib with RVR are rate 147 similar to previous EKGs. EKG 2.: Sinus rhythm rate 65 E does have T-wave inversions noted in V3 which are similar to previous EKG. No acute ST changes. MDM Narrative Medical decision making narrative: 5:[address] Sinan stanley regards to patient. Recommend starting patient on metoprolol 25 mg twice a day and following up in the office. However after further conversation with patient he states is that he feels his heart rate may be got too slow and that is why he to come off metoprolol cause he was on it previously. 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 Discharge Plan Departure Patient Disposition: Home Clinical Impression: Atrial fibrillation with RVR Discharge Date/Time: 10/13/18 18:40 Instructions: Atrial Fibrillation Activity Restrictions/Additional Instructions: *You have been diagnosed with atrial fibrillation with RVR *What to do: Dr. Menon recommended starting you on medication. Please call Cardiology office tomorrow to schedule follow-up appointment *Continue to take medications as directed: -Talk with Dr. martinez before starting any medications, not sure you tolerate medications *Follow up with your primary care provider in 2-3 days, call Dr. Martinez is office tomorrow to schedule follow-up appointment *Return to ER if you should have shortness of breath, chest pain, lightheadedness, fatigue or any new, worsening or concerning symptoms Prescriptions: New metoprolol tartrate 25 mg tablet 25 mg PO BID Qty: 60 RF: 0 No Action simvastatin 20 mg tablet 20 mg PO QPM Qty: 90 RF: 3 latanoprost 0.005 % Drops 1 drp ophthalmic (eye) BEDTIME RF: 0 dorzolamide-timolol 22.3-6.8 mg/mL Drops 1 drp ophthalmic (eye) BID RF: 0 warfarin [Coumadin] 5 mg Tablet 2.5 mg PO MOFR RF: 0 warfarin [Coumadin] 5 mg tablet 5 mg PO SUTUWETHSA RF: 0 Referrals: Wood Moreno MD [Primary Care Provider] - Drew Martinez MD [Family Provider] -
[2018-10-13] MEDS: dilTIAZem 5 MG/ML SDV IV (16:59)
[2018-10-13 17:13] LABS: Thyroid Stimulating Hormone 1.88 uIU/mL (0.47-4.68)
[2018-10-13] MEDS: ETOMIDATE 2 MG/ML VIAL 11.3 MG IV (17:18)
--- NOTE | 2018-10-13 17:19 | PC.NURSE ---
unable to assess GSC at this time patient currently sedated per provider. provider at bedside.
== END 2018-10-13 18:40 | disposition home or self-care (01) ==
PROVIDERS: Emergency Provider Emergency Medicine; Family Provider Internal Medicine Cardiovascular Disease; PCP Student in an Organized Health Care Education/Training Program
DX: I48.91 Unspecified atrial fibrillation (principal)
CPT/HCPCS: 36591; 71045; 80048; 82550; 83735; 84443; 84484; 85025; 92960; 93005; 94770; 96361; 96374; 99152; 99285

== ENCOUNTER → 2018-10-20 15:22 | Outpatient (CLI) | payer OTHER, SELFPAY ==
[2018-10-20 16:38] LABS: INR 1.9 (0.9-1.3); Prothrombin Time 21.1 SECONDS (10.1-12.7)
== END ==
PROVIDERS: PCP Student in an Organized Health Care Education/Training Program; Visit Provider Student in an Organized Health Care Education/Training Program
DX: I48.2 Chronic atrial fibrillation (principal); Z86.718 Personal history of other venous thrombosis and embolism; I48.91 Unspecified atrial fibrillation; Z79.01 Long term (current) use of anticoagulants
CPT/HCPCS: 36415; 85610

== ENCOUNTER → 2018-11-25 11:52 | Outpatient (CLI) | payer OTHER, SELFPAY ==
[2018-11-25 14:18] LABS: INR 1.5 (0.9-1.3); Prothrombin Time 17.3 SECONDS (10.1-12.7)
== END ==
PROVIDERS: PCP Student in an Organized Health Care Education/Training Program; Visit Provider Student in an Organized Health Care Education/Training Program
DX: I48.2 Chronic atrial fibrillation (principal); Z86.718 Personal history of other venous thrombosis and embolism
CPT/HCPCS: 36415; 85610

== ENCOUNTER → 2018-12-21 16:00 | Outpatient (CLI) | payer OTHER, SELFPAY ==
[2018-12-21 17:08] LABS: INR 2.1 (0.9-1.3); Prothrombin Time 24.2 SECONDS (10.1-12.7)
== END ==
PROVIDERS: Family Provider Student in an Organized Health Care Education/Training Program; PCP Student in an Organized Health Care Education/Training Program; Visit Provider Student in an Organized Health Care Education/Training Program
DX: Z79.01 Long term (current) use of anticoagulants (principal); R79.1 Abnormal coagulation profile
CPT/HCPCS: 36415; 85610

== ENCOUNTER → 2019-01-25 15:22 | Outpatient (CLI) | payer OTHER, SELFPAY ==
[2019-01-25 15:45] LABS: INR 2.5 (0.9-1.3); Prothrombin Time 29.7 SECONDS (10.1-12.7)
== END ==
PROVIDERS: PCP Student in an Organized Health Care Education/Training Program; Visit Provider Student in an Organized Health Care Education/Training Program
DX: I48.91 Unspecified atrial fibrillation (principal); Z79.01 Long term (current) use of anticoagulants
CPT/HCPCS: 36415; 85610

== ENCOUNTER → 2019-02-22 15:18 | Outpatient (CLI) | payer OTHER, SELFPAY ==
[2019-02-22 15:45] LABS: INR 2.3 (0.9-1.3); Prothrombin Time 26.8 SECONDS (10.1-12.7)
== END ==
PROVIDERS: PCP Student in an Organized Health Care Education/Training Program; Visit Provider Student in an Organized Health Care Education/Training Program
DX: I48.91 Unspecified atrial fibrillation (principal); Z79.01 Long term (current) use of anticoagulants
CPT/HCPCS: 36415; 85610

== ENCOUNTER → 2019-03-22 15:20 | Outpatient (CLI) | payer OTHER, SELFPAY ==
[2019-03-22 18:50] LABS: INR 1.8 (0.9-1.3); Prothrombin Time 20.8 SECONDS (10.1-12.7)
== END ==
PROVIDERS: PCP Student in an Organized Health Care Education/Training Program; Visit Provider Student in an Organized Health Care Education/Training Program
DX: I48.91 Unspecified atrial fibrillation (principal); Z79.01 Long term (current) use of anticoagulants
CPT/HCPCS: 36415; 85610

== ENCOUNTER → 2019-04-22 09:41 | Outpatient (CLI) | payer OTHER, SELFPAY ==
[2019-04-22 11:03] LABS: INR 1.6 (0.9-1.3)
== END ==
PROVIDERS: PCP Student in an Organized Health Care Education/Training Program; Visit Provider Student in an Organized Health Care Education/Training Program
DX: I48.2 Chronic atrial fibrillation (principal); Z79.01 Long term (current) use of anticoagulants
CPT/HCPCS: 36415; 85610

== ENCOUNTER → 2019-05-10 15:36 | Outpatient (CLI) | payer OTHER, SELFPAY ==
[2019-05-10 15:59] LABS: INR 1.8 (0.9-1.3)
== END ==
PROVIDERS: PCP Student in an Organized Health Care Education/Training Program; Visit Provider Student in an Organized Health Care Education/Training Program
DX: I48.91 Unspecified atrial fibrillation (principal); Z79.01 Long term (current) use of anticoagulants; Z86.718 Personal history of other venous thrombosis and embolism
CPT/HCPCS: 36415; 85610

== ENCOUNTER → 2019-05-24 13:55 | Outpatient (CLI) | payer OTHER, SELFPAY ==
[2019-05-24 15:04] LABS: INR 2.1 (0.9-1.3); Prothrombin Time 24.9 SECONDS (10.1-12.7)
== END ==
PROVIDERS: PCP Student in an Organized Health Care Education/Training Program; Visit Provider Student in an Organized Health Care Education/Training Program
DX: I48.91 Unspecified atrial fibrillation (principal); Z79.01 Long term (current) use of anticoagulants
CPT/HCPCS: 36415; 85610

== ENCOUNTER → 2019-06-28 15:05 | Outpatient (CLI) | payer OTHER, SELFPAY ==
[2019-06-28 16:09] LABS: INR 2.9 (0.9-1.3); Prothrombin Time 34.6 SECONDS (10.1-12.7)
== END ==
PROVIDERS: PCP Student in an Organized Health Care Education/Training Program; Visit Provider Student in an Organized Health Care Education/Training Program
DX: I48.91 Unspecified atrial fibrillation (principal); Z79.01 Long term (current) use of anticoagulants; Z86.718 Personal history of other venous thrombosis and embolism
CPT/HCPCS: 36415; 85610

== ENCOUNTER → 2019-07-28 12:04 | Outpatient (CLI) | payer OTHER, SELFPAY ==
[2019-07-28 12:47] LABS: INR 2.3 (0.9-1.3); Prothrombin Time 26.7 SECONDS (10.1-12.7)
== END ==
PROVIDERS: PCP Student in an Organized Health Care Education/Training Program; Visit Provider Student in an Organized Health Care Education/Training Program
DX: I48.91 Unspecified atrial fibrillation (principal); Z79.01 Long term (current) use of anticoagulants
CPT/HCPCS: 36415; 85610

== ENCOUNTER → 2019-08-30 15:28 | Outpatient (CLI) | payer OTHER, SELFPAY ==
[2019-08-30 16:33] LABS: INR 3.2 (0.9-1.3); Prothrombin Time 37.1 SECONDS (10.1-12.7)
== END ==
PROVIDERS: PCP Student in an Organized Health Care Education/Training Program; Visit Provider Student in an Organized Health Care Education/Training Program
DX: I48.91 Unspecified atrial fibrillation (principal); Z51.81 Encounter for therapeutic drug level monitoring; Z79.01 Long term (current) use of anticoagulants
CPT/HCPCS: 36415; 85610

== ENCOUNTER → 2019-09-14 16:12 | Outpatient (CLI) | payer OTHER, SELFPAY ==
[2019-09-14 16:56] LABS: INR 2.4 (0.9-1.3)
== END ==
PROVIDERS: PCP Student in an Organized Health Care Education/Training Program; Visit Provider Student in an Organized Health Care Education/Training Program
DX: I48.91 Unspecified atrial fibrillation (principal); Z51.81 Encounter for therapeutic drug level monitoring; Z79.01 Long term (current) use of anticoagulants
CPT/HCPCS: 36415; 85610

== ENCOUNTER → 2019-10-05 14:54 | Outpatient (CLI) | payer OTHER, SELFPAY ==
[2019-10-05 16:08] LABS: INR 2.4 (0.9-1.3); Prothrombin Time 27.8 SECONDS (10.1-12.7)
== END ==
PROVIDERS: PCP Student in an Organized Health Care Education/Training Program; Visit Provider Student in an Organized Health Care Education/Training Program
DX: I48.91 Unspecified atrial fibrillation (principal); Z79.01 Long term (current) use of anticoagulants
CPT/HCPCS: 36415; 85610

== ENCOUNTER → 2019-11-09 11:58 | Outpatient (CLI) | payer OTHER, SELFPAY ==
[2019-11-09 12:51] LABS: INR 2.4 (0.9-1.3); Prothrombin Time 27.6 SECONDS (10.1-12.7)
== END ==
PROVIDERS: PCP Student in an Organized Health Care Education/Training Program; Visit Provider Student in an Organized Health Care Education/Training Program
DX: I48.91 Unspecified atrial fibrillation (principal); Z79.01 Long term (current) use of anticoagulants; Z86.718 Personal history of other venous thrombosis and embolism
CPT/HCPCS: 36415; 85610

== ENCOUNTER → 2019-12-08 15:06 | Outpatient (CLI) | payer MEDICARE, SELFPAY ==
[2019-12-08 16:37] LABS: Prothrombin Time 23.3 SECONDS (10.1-12.7)
[2019-12-08 16:42] LABS: Blood Urea Nitrogen 16 mg/dL (9-20); Calcium 8.8 mg/dL (8.4-10.2); Carbon Dioxide 28 mmol/L (22-32); Chloride 106 mmol/L (98-107); Estimated Glomerular Filt Rate > 60.0 mL/min (>60); Glucose 87 mg/dL (80-110); HEMOLYSIS < 15 (0-50); Magnesium 1.9 mg/dL (1.6-2.3); Potassium 4.3 mmol/L (3.4-5.1); Sodium 140 mmol/L (137-145)
== END ==
PROVIDERS: PCP Student in an Organized Health Care Education/Training Program; Visit Provider Physician Assistant
DX: I48.0 Paroxysmal atrial fibrillation (principal); I48.91 Unspecified atrial fibrillation
CPT/HCPCS: 36415; 80048; 83735; 85610

== ENCOUNTER → 2020-01-10 16:05 | Outpatient (CLI) | payer MEDICARE, SELFPAY ==
[2020-01-10 17:54] LABS: INR 2.9 (0.9-1.3); Prothrombin Time 33.2 SECONDS (10.1-12.7)
== END ==
PROVIDERS: PCP Student in an Organized Health Care Education/Training Program; Referring Provider Student in an Organized Health Care Education/Training Program; Visit Provider Student in an Organized Health Care Education/Training Program
DX: I48.20 Chronic atrial fibrillation, unspecified (principal); Z79.01 Long term (current) use of anticoagulants; Z86.718 Personal history of other venous thrombosis and embolism
CPT/HCPCS: 36415; 85610

== ENCOUNTER → 2020-02-08 13:39 | Outpatient (CLI) | payer MEDICARE, SELFPAY ==
[2020-02-08 14:28] LABS: INR 2.1 (0.9-1.3); Prothrombin Time 24.6 SECONDS (10.1-12.7)
== END ==
PROVIDERS: PCP Student in an Organized Health Care Education/Training Program; Referring Provider Student in an Organized Health Care Education/Training Program; Visit Provider Student in an Organized Health Care Education/Training Program
DX: Z79.01 Long term (current) use of anticoagulants (principal)
CPT/HCPCS: 36415; 85610

== ENCOUNTER → 2020-03-13 13:53 | Outpatient (CLI) | payer MEDICARE, SELFPAY ==
[2020-03-13 15:36] LABS: INR 1.6 (0.9-1.3); Prothrombin Time 18.1 SECONDS (10.1-12.7)
== END ==
PROVIDERS: PCP Student in an Organized Health Care Education/Training Program; Referring Provider Student in an Organized Health Care Education/Training Program; Visit Provider Student in an Organized Health Care Education/Training Program
DX: I48.91 Unspecified atrial fibrillation (principal); Z79.01 Long term (current) use of anticoagulants; Z86.718 Personal history of other venous thrombosis and embolism
CPT/HCPCS: 36415; 85610

== ENCOUNTER → 2020-04-05 15:08 | Outpatient (CLI) | payer MEDICARE, SELFPAY ==
[2020-04-05 15:53] LABS: Prothrombin Time 23.3 SECONDS (10.1-12.7)
== END ==
PROVIDERS: PCP Student in an Organized Health Care Education/Training Program; Referring Provider Student in an Organized Health Care Education/Training Program; Visit Provider Student in an Organized Health Care Education/Training Program
DX: I48.91 Unspecified atrial fibrillation (principal); Z79.01 Long term (current) use of anticoagulants
CPT/HCPCS: 36415; 85610

== ENCOUNTER → 2020-05-08 13:06 | Outpatient (CLI) | payer MEDICARE, SELFPAY ==
[2020-05-08 13:44] LABS: INR 2.9 (0.9-1.3); Prothrombin Time 33.4 SECONDS (10.1-12.7)
== END ==
PROVIDERS: PCP Student in an Organized Health Care Education/Training Program; Referring Provider Student in an Organized Health Care Education/Training Program; Visit Provider Student in an Organized Health Care Education/Training Program
DX: I48.91 Unspecified atrial fibrillation (principal); Z79.01 Long term (current) use of anticoagulants; Z86.718 Personal history of other venous thrombosis and embolism
CPT/HCPCS: 36415; 85610

== ENCOUNTER → 2020-06-08 15:22 | Outpatient (CLI) | payer MEDICARE, SELFPAY ==
[2020-06-08 17:15] LABS: INR 2.1 (0.9-1.3); Prothrombin Time 23.9 SECONDS (10.1-12.7)
== END ==
PROVIDERS: PCP Student in an Organized Health Care Education/Training Program; Referring Provider Student in an Organized Health Care Education/Training Program; Visit Provider Student in an Organized Health Care Education/Training Program
DX: I48.91 Unspecified atrial fibrillation (principal); Z79.01 Long term (current) use of anticoagulants; Z86.718 Personal history of other venous thrombosis and embolism
CPT/HCPCS: 36415; 85610

== ENCOUNTER → 2020-07-12 16:57 | Outpatient (CLI) | payer MEDICARE, SELFPAY ==
[2020-07-12 18:27] LABS: INR 2.7 (0.9-1.3); Prothrombin Time 31.4 SECONDS (10.1-12.7)
== END ==
PROVIDERS: PCP Student in an Organized Health Care Education/Training Program; Referring Provider Student in an Organized Health Care Education/Training Program; Visit Provider Student in an Organized Health Care Education/Training Program
DX: I48.91 Unspecified atrial fibrillation (principal); Z79.01 Long term (current) use of anticoagulants
CPT/HCPCS: 36415; 85610

== ENCOUNTER → 2020-08-16 12:19 | Outpatient (CLI) | payer MEDICARE, SELFPAY ==
[2020-08-16 12:54] LABS: INR 2.3 (0.9-1.3); Prothrombin Time 26.1 SECONDS (10.1-12.7)
== END ==
PROVIDERS: PCP Student in an Organized Health Care Education/Training Program; Referring Provider Student in an Organized Health Care Education/Training Program; Visit Provider Student in an Organized Health Care Education/Training Program
DX: I48.91 Unspecified atrial fibrillation (principal); Z79.01 Long term (current) use of anticoagulants
CPT/HCPCS: 36415; 85610

== ENCOUNTER → 2020-09-19 15:02 | Outpatient (CLI) | payer MEDICARE, SELFPAY | PROVIDERS: PCP Student in an Organized Health Care Education/Training Program; Referring Provider Student in an Organized Health Care Education/Training Program; Visit Provider Student in an Organized Health Care Education/Training Program | DX: I48.91 Unspecified atrial fibrillation (principal); Z79.01 Long term (current) use of anticoagulants; Z86.718 Personal history of other venous thrombosis and embolism | CPT/HCPCS: 36415; 85610 ==

== ENCOUNTER → 2020-11-02 15:23 | Outpatient (CLI) | payer MEDICARE, SELFPAY ==
[2020-11-02 16:24] LABS: Prothrombin Time 58.6 SECONDS (10.1-12.7)
[2020-11-02 16:26] LABS: INR 5.2 (0.9-1.3)
== END ==
PROVIDERS: Internal Medicine; PCP Student in an Organized Health Care Education/Training Program; Referring Provider Student in an Organized Health Care Education/Training Program; Visit Provider Student in an Organized Health Care Education/Training Program
DX: I48.91 Unspecified atrial fibrillation (principal); Z79.01 Long term (current) use of anticoagulants
CPT/HCPCS: 36415; 85610

== ENCOUNTER → 2020-11-14 15:30 | Outpatient (CLI) | payer MEDICARE, SELFPAY ==
[2020-11-14 16:36] LABS: INR 2.1 (0.9-1.3); Prothrombin Time 23.8 SECONDS (10.1-12.7)
== END ==
PROVIDERS: PCP Student in an Organized Health Care Education/Training Program; Referring Provider Student in an Organized Health Care Education/Training Program; Visit Provider Student in an Organized Health Care Education/Training Program
DX: I48.91 Unspecified atrial fibrillation (principal); Z79.01 Long term (current) use of anticoagulants
CPT/HCPCS: 36415; 85610

== ENCOUNTER → 2020-12-12 13:24 | Outpatient (CLI) | payer MEDICARE, SELFPAY ==
[2020-12-12 14:30] LABS: INR 2.2 (0.9-1.3); Prothrombin Time 25.5 SECONDS (10.1-12.7)
[2020-12-12 15:42] LABS: BUN Creatinine Ratio 16.5 (6-22); Blood Urea Nitrogen 18 mg/dL (9-20); Calcium 8.9 mg/dL (8.4-10.2); Carbon Dioxide 31 mmol/L (22-32); Chloride 108 mmol/L (98-107); Estimated Glomerular Filt Rate > 60.0 mL/min (>60); Glucose 96 mg/dL (80-110); HEMOLYSIS < 15 (0-50); Magnesium 1.7 mg/dL (1.6-2.3); Potassium 4.8 mmol/L (3.4-5.1); Sodium 139 mmol/L (137-145)
== END ==
PROVIDERS: PCP Student in an Organized Health Care Education/Training Program; Referring Provider Student in an Organized Health Care Education/Training Program; Visit Provider Physician Assistant
DX: I48.0 Paroxysmal atrial fibrillation (principal); Z79.01 Long term (current) use of anticoagulants; I48.91 Unspecified atrial fibrillation
CPT/HCPCS: 36415; 80048; 83735; 85610

== ENCOUNTER → 2020-12-28 15:02 | Outpatient (CLI) | payer MEDICARE, SELFPAY ==
[2020-12-28] MEDS: COVID-19 VACC #1, MRNA(MOD) 100 MCG/0.5 ML VIAL IM (15:18)
== END ==
PROVIDERS: PCP Student in an Organized Health Care Education/Training Program; Visit Provider Internal Medicine
DX: Z23 Encounter for immunization (principal)
CPT/HCPCS: 0011A; 91301

== ENCOUNTER → 2021-01-11 14:27 | Outpatient (CLI) | payer MEDICARE, SELFPAY ==
[2021-01-11 15:01] LABS: INR 3.3 (0.9-1.3); Prothrombin Time 37.6 SECONDS (10.1-12.7)
== END ==
PROVIDERS: PCP Student in an Organized Health Care Education/Training Program; Referring Provider Student in an Organized Health Care Education/Training Program; Visit Provider Student in an Organized Health Care Education/Training Program
DX: I48.20 Chronic atrial fibrillation, unspecified (principal); Z79.01 Long term (current) use of anticoagulants
CPT/HCPCS: 36415; 85610

== ENCOUNTER → 2021-01-25 14:45 | Outpatient (CLI) | payer MEDICARE, SELFPAY ==
[2021-01-25] MEDS: COVID-19 VACC #2, MRNA(MOD) 100 MCG/0.5 ML VIAL IM (14:50)
== END ==
PROVIDERS: PCP Student in an Organized Health Care Education/Training Program; Visit Provider Internal Medicine
DX: Z23 Encounter for immunization (principal)
CPT/HCPCS: 0012A; 91301

== ENCOUNTER → 2021-02-14 14:48 | Outpatient (CLI) | payer MEDICARE, SELFPAY ==
[2021-02-14 16:31] LABS: INR 2.5 (0.9-1.3); Prothrombin Time 27.5 SECONDS (10.1-12.7)
[2021-02-14 16:37] LABS: Cholesterol 166 mg/dL (140-199); HDL Cholesterol 48 mg/dL (40-60); LDL Cholesterol Calculated 93 mg/dL (<100); Triglycerides 126 mg/dL (35-150)
== END ==
PROVIDERS: PCP Student in an Organized Health Care Education/Training Program; Referring Provider Student in an Organized Health Care Education/Training Program; Visit Provider Student in an Organized Health Care Education/Training Program
DX: I48.91 Unspecified atrial fibrillation (principal); E78.00 Pure hypercholesterolemia, unspecified; Z79.01 Long term (current) use of anticoagulants
CPT/HCPCS: 36415; 80061; 85610

== ENCOUNTER → 2021-03-20 16:58 | Outpatient (CLI) | payer MEDICARE, SELFPAY ==
[2021-03-20 17:35] LABS: INR 2.3 (0.9-1.3); Prothrombin Time 26.7 SECONDS (10.1-12.7)
== END ==
PROVIDERS: PCP Student in an Organized Health Care Education/Training Program; Referring Provider Student in an Organized Health Care Education/Training Program; Visit Provider Student in an Organized Health Care Education/Training Program
DX: I48.20 Chronic atrial fibrillation, unspecified (principal); Z79.01 Long term (current) use of anticoagulants
CPT/HCPCS: 36415; 85610

== ENCOUNTER → 2021-04-17 15:09 | Outpatient (CLI) | payer MEDICARE, SELFPAY ==
[2021-04-17 15:57] LABS: INR 2.5 (0.9-1.3); Prothrombin Time 28.9 SECONDS (10.1-12.7)
== END ==
PROVIDERS: PCP Student in an Organized Health Care Education/Training Program; Referring Provider Student in an Organized Health Care Education/Training Program; Visit Provider Student in an Organized Health Care Education/Training Program
DX: Z79.01 Long term (current) use of anticoagulants (principal)
CPT/HCPCS: 36415; 85610

== ENCOUNTER → 2021-05-22 13:28 | Outpatient (CLI) | payer MEDICARE, SELFPAY ==
[2021-05-22 14:28] LABS: INR 2.6 (0.9-1.3); Prothrombin Time 30.3 SECONDS (10.1-12.7)
== END ==
PROVIDERS: PCP Student in an Organized Health Care Education/Training Program; Referring Provider Student in an Organized Health Care Education/Training Program; Visit Provider Student in an Organized Health Care Education/Training Program
DX: I48.20 Chronic atrial fibrillation, unspecified (principal); Z79.01 Long term (current) use of anticoagulants
CPT/HCPCS: 36415; 85610

== ENCOUNTER → 2021-06-21 12:49 | Outpatient (CLI) | payer MEDICARE, SELFPAY ==
[2021-06-21 13:13] LABS: INR 2.8 (0.9-1.3)
== END ==
PROVIDERS: PCP Student in an Organized Health Care Education/Training Program; Referring Provider Student in an Organized Health Care Education/Training Program; Visit Provider Student in an Organized Health Care Education/Training Program
DX: I48.20 Chronic atrial fibrillation, unspecified (principal); Z79.01 Long term (current) use of anticoagulants
CPT/HCPCS: 36415; 85610

== ENCOUNTER → 2021-07-30 14:09 | Outpatient (CLI) | payer MEDICARE, SELFPAY ==
[2021-07-30 14:42] LABS: INR 3.3 (0.9-1.3); Prothrombin Time 39.2 SECONDS (10.1-12.7)
== END ==
PROVIDERS: PCP Student in an Organized Health Care Education/Training Program; Referring Provider Student in an Organized Health Care Education/Training Program; Visit Provider Student in an Organized Health Care Education/Training Program
DX: Z79.01 Long term (current) use of anticoagulants (principal)
CPT/HCPCS: 36415; 85610

== ENCOUNTER → 2021-08-13 15:11 | Outpatient (CLI) | payer MEDICARE, SELFPAY ==
[2021-08-13 15:34] LABS: INR 2.3 (0.9-1.3); Prothrombin Time 27.1 SECONDS (10.1-12.7)
== END ==
PROVIDERS: PCP Student in an Organized Health Care Education/Training Program; Referring Provider Student in an Organized Health Care Education/Training Program; Visit Provider Student in an Organized Health Care Education/Training Program
DX: Z79.01 Long term (current) use of anticoagulants (principal); I48.20 Chronic atrial fibrillation, unspecified
CPT/HCPCS: 36415; 85610

== ENCOUNTER → 2021-08-28 14:55 | Outpatient (CLI) | payer MEDICARE, SELFPAY ==
[2021-08-28 15:48] LABS: INR 2.9 (0.9-1.3); Prothrombin Time 33.4 SECONDS (10.1-12.7)
== END ==
PROVIDERS: PCP Student in an Organized Health Care Education/Training Program; Referring Provider Student in an Organized Health Care Education/Training Program; Visit Provider Student in an Organized Health Care Education/Training Program
DX: Z79.01 Long term (current) use of anticoagulants (principal)
CPT/HCPCS: 36415; 85610

== ENCOUNTER → 2021-09-25 16:04 | Outpatient (CLI) | payer MEDICARE, SELFPAY ==
[2021-09-25 17:11] LABS: INR 2.5 (0.9-1.3); Prothrombin Time 28.9 SECONDS (10.1-12.7)
== END ==
PROVIDERS: PCP Student in an Organized Health Care Education/Training Program; Referring Provider Student in an Organized Health Care Education/Training Program; Visit Provider Student in an Organized Health Care Education/Training Program
DX: Z79.01 Long term (current) use of anticoagulants (principal)
CPT/HCPCS: 36415; 85610

== ENCOUNTER → 2021-10-29 14:38 | Outpatient (CLI) | payer MEDICARE, SELFPAY ==
[2021-10-29 15:51] LABS: INR 2.7 (0.9-1.3); Prothrombin Time 31.4 SECONDS (10.1-12.7)
[2021-10-29 15:59] LABS: BUN Creatinine Ratio 14.8 (6-22); Blood Urea Nitrogen 18 mg/dL (9-20); Carbon Dioxide 29 mmol/L (22-32); Chloride 108 mmol/L (98-107); Estimated Glomerular Filt Rate 56.6 mL/min (>60); Glucose 91 mg/dL (80-110); HEMOLYSIS < 15 (0-50); Potassium 4.5 mmol/L (3.4-5.1); Sodium 142 mmol/L (137-145)
== END ==
PROVIDERS: PCP Student in an Organized Health Care Education/Training Program; Referring Provider Internal Medicine Cardiovascular Disease; Visit Provider Internal Medicine Cardiovascular Disease
DX: I48.0 Paroxysmal atrial fibrillation (principal); Z79.01 Long term (current) use of anticoagulants
CPT/HCPCS: 36415; 80048; 85610

== ENCOUNTER → 2021-12-06 12:25 | Outpatient (CLI) | payer MEDICARE, SELFPAY ==
[2021-12-06 13:41] LABS: INR 2.8 (0.9-1.3); Prothrombin Time 32.8 SECONDS (10.1-12.7)
== END ==
PROVIDERS: PCP Student in an Organized Health Care Education/Training Program; Referring Provider Student in an Organized Health Care Education/Training Program; Visit Provider Student in an Organized Health Care Education/Training Program
DX: Z79.01 Long term (current) use of anticoagulants (principal)
CPT/HCPCS: 36415; 85610

== ENCOUNTER → 2022-01-09 15:59 | Outpatient (CLI) | payer MEDICARE, SELFPAY ==
[2022-01-09 17:02] LABS: INR 3.2 (0.9-1.3); Prothrombin Time 36.5 SECONDS (10.1-12.7)
== END ==
PROVIDERS: PCP Student in an Organized Health Care Education/Training Program; Referring Provider Student in an Organized Health Care Education/Training Program; Visit Provider Student in an Organized Health Care Education/Training Program
DX: Z79.01 Long term (current) use of anticoagulants (principal)
CPT/HCPCS: 36415; 85610

== ENCOUNTER → 2022-01-30 16:42 | Outpatient (CLI) | payer MEDICARE, SELFPAY ==
[2022-01-30 17:31] LABS: INR 2.5 (0.9-1.3); Prothrombin Time 29.6 SECONDS (10.1-12.7)
== END ==
PROVIDERS: PCP Student in an Organized Health Care Education/Training Program; Referring Provider Student in an Organized Health Care Education/Training Program; Visit Provider Student in an Organized Health Care Education/Training Program
DX: Z79.01 Long term (current) use of anticoagulants (principal)
CPT/HCPCS: 36415; 85610

== ENCOUNTER → 2022-03-05 14:50 | Outpatient (CLI) | payer MEDICARE, SELFPAY ==
[2022-03-05 16:16] LABS: INR 2.8 (0.9-1.3); Prothrombin Time 32.3 SECONDS (10.1-12.7)
== END ==
PROVIDERS: PCP Student in an Organized Health Care Education/Training Program; Referring Provider Student in an Organized Health Care Education/Training Program; Visit Provider Student in an Organized Health Care Education/Training Program
DX: Z79.01 Long term (current) use of anticoagulants (principal)
CPT/HCPCS: 36415; 85610

== ENCOUNTER → 2022-04-03 13:29 | Outpatient (CLI) | payer MEDICARE, SELFPAY ==
[2022-04-03 15:21] LABS: Prothrombin Time 34.7 SECONDS (10.1-12.7)
== END ==
PROVIDERS: PCP Student in an Organized Health Care Education/Training Program; Referring Provider Student in an Organized Health Care Education/Training Program; Visit Provider Student in an Organized Health Care Education/Training Program
DX: Z79.01 Long term (current) use of anticoagulants (principal)
CPT/HCPCS: 36415; 85610

== ENCOUNTER → 2022-05-07 10:16 | Outpatient (CLI) | payer MEDICARE, SELFPAY ==
[2022-05-07 10:53] LABS: INR 2.4 (0.9-1.3); Prothrombin Time 27.6 SECONDS (10.1-12.7)
== END ==
PROVIDERS: PCP Student in an Organized Health Care Education/Training Program; Referring Provider Student in an Organized Health Care Education/Training Program; Visit Provider Student in an Organized Health Care Education/Training Program
DX: Z79.01 Long term (current) use of anticoagulants (principal)
CPT/HCPCS: 36415; 85610

== ENCOUNTER → 2022-05-21 11:46 | Outpatient (CLI) | payer MEDICARE, SELFPAY ==
[2022-05-21 13:23] LABS: Alanine Aminotransferase 9 IU/L (<50); Albumin 3.7 g/dL (3.5-5.0); Albumin Globulin Ratio 1.6 (1.0-2.8); Alkaline Phosphatase 64 U/L (38-126); Aspartate Aminotransferase 23 IU/L (17-59); BUN Creatinine Ratio 14.5 (6-22); Bilirubin Total 0.9 mg/dL (0.2-1.3); Blood Urea Nitrogen 18 mg/dL (9-20); Calcium 8.3 mg/dL (8.4-10.2); Carbon Dioxide 28 mmol/L (22-32); Chloride 108 mmol/L (98-107); Cholesterol 162 mg/dL (140-199); Estimated Glomerular Filt Rate 57 mL/min (>60); Globulin 2.3 g/dL (1.7-4.1); Glucose 99 mg/dL (80-110); HDL Cholesterol 47 mg/dL (40-60); HEMOLYSIS < 15 (0-50); LDL Cholesterol Calculated 98 mg/dL (<100); Potassium 4.5 mmol/L (3.4-5.1); Sodium 141 mmol/L (137-145); Triglycerides 84 mg/dL (35-150)
== END ==
PROVIDERS: PCP Student in an Organized Health Care Education/Training Program; Referring Provider Student in an Organized Health Care Education/Training Program; Visit Provider Student in an Organized Health Care Education/Training Program
DX: E78.00 Pure hypercholesterolemia, unspecified (principal); Z79.899 Other long term (current) drug therapy
CPT/HCPCS: 36415; 80053; 80061

== ENCOUNTER → 2022-06-05 14:17 | Outpatient (CLI) | payer MEDICARE, SELFPAY ==
[2022-06-05 14:43] LABS: INR 2.8 (0.9-1.3); Prothrombin Time 32.3 SECONDS (10.1-12.7)
[2022-06-05 14:54] LABS: BUN Creatinine Ratio 14.5 (6-22); Blood Urea Nitrogen 18 mg/dL (9-20); Calcium 8.3 mg/dL (8.4-10.2); Carbon Dioxide 27 mmol/L (22-32); Chloride 108 mmol/L (98-107); Estimated Glomerular Filt Rate 57 mL/min (>60); Glucose 92 mg/dL (80-110); HEMOLYSIS < 15 (0-50); Potassium 4.4 mmol/L (3.4-5.1); Sodium 142 mmol/L (137-145)
== END ==
PROVIDERS: PCP Student in an Organized Health Care Education/Training Program; Referring Provider Internal Medicine Cardiovascular Disease; Visit Provider Internal Medicine Cardiovascular Disease
DX: Z79.01 Long term (current) use of anticoagulants (principal); I48.0 Paroxysmal atrial fibrillation
CPT/HCPCS: 36415; 80048; 85610

== ENCOUNTER → 2022-07-08 15:16 | Outpatient (CLI) | payer MEDICARE, SELFPAY ==
[2022-07-08 17:06] LABS: INR 3.5 (0.9-1.3); Prothrombin Time 40.5 SECONDS (10.1-12.7)
== END ==
PROVIDERS: PCP Student in an Organized Health Care Education/Training Program; Referring Provider Student in an Organized Health Care Education/Training Program; Visit Provider Student in an Organized Health Care Education/Training Program
DX: Z79.01 Long term (current) use of anticoagulants (principal)
CPT/HCPCS: 36415; 85610

== ENCOUNTER → 2022-07-16 17:02 | Outpatient (CLI) | payer MEDICARE, SELFPAY ==
--- NOTE | 2022-07-16 17:05 | DI.MRI.S_ITS ---
PROCEDURE: MR LUMBAR SPINE WO CON INDICATIONS: Low back pain with sciatica TECHNIQUE: Noncontrast sagittal T1 spin echo and T2 fast echo, sagittal STIR, and T2 fast spin echo through the lumbar spine. In cases with scoliosis, additional coronal T2 fast spin echo may be performed. COMPARISON: [facility], , L-SPINE WITHOUT CONTRAST, 10/22/2015, 14:54. FINDINGS: Image quality: Excellent. Alignment and Curvature: Trace retrolisthesis of L3 on L4. Trace retrolisthesis of L4 on L5. Bone Marrow: Marrow is of normal overall signal. No acute vertebral body compression fractures. Spinal Cord: Conus medullaris terminates at the T12-L1 level. Visualized cord demonstrates normal signal and size. Paraspinous Soft Tissues: No paravertebral masses. Very large left renal cyst measuring approximately 11 cm. A right renal cyst measures approximately 7.3 cm. T12-L1: Mild disc bulge. No canal stenosis or foraminal stenosis. L1-L2: No canal stenosis or foraminal stenosis. L2-L3: No canal stenosis or foraminal stenosis. L3-L4: Disc bulge. Facet hypertrophy. No significant canal stenosis. Far right lateral disc bulge. Moderate right foraminal narrowing with mild flattening deformity on the exiting right L3 nerve root far laterally. L4-L5: Disc bulge. Facet hypertrophy. Borderline canal stenosis. Mild right foraminal narrowing. Moderate left foraminal narrowing with flattening deformity on the exiting left L4 nerve root. L5-S1: Disc bulge. Facet hypertrophy. There is now a small focally extruded disc fragment in the left lateral recess measuring approximately 0.9 x 0.6 x 0.8 cm posteriorly deviating the left S1 nerve root in the left lateral recess. [id number] bilateral foraminal narrowing. IMPRESSION: 1. A small focal extruded disc fragment posteriorly deviates the left S1 nerve root in the left lateral recess, likely resulting in left sciatica. 2. Other findings are stable. Multilevel facet arthropathy. Borderline canal stenosis at L4-L5. Multilevel foraminal narrowing as described above. Dictated by: Casimiro Cantu M.D. on 07/17/2022 at 11:29 Approved by: Casimiro Cantu M.D. on 07/17/2022 at 11:37
== END ==
PROVIDERS: PCP Student in an Organized Health Care Education/Training Program; Referring Provider Student in an Organized Health Care Education/Training Program; Visit Provider Student in an Organized Health Care Education/Training Program
DX: M51.17 Intervertebral disc disorders with radiculopathy, lumbosacral region (principal); M47.26 Other spondylosis with radiculopathy, lumbar region; M47.27 Other spondylosis with radiculopathy, lumbosacral region; M48.061 Spinal stenosis, lumbar region without neurogenic claudication; M48.07 Spinal stenosis, lumbosacral region
CPT/HCPCS: 72148

== ENCOUNTER → 2022-08-15 12:39 | Outpatient (CLI) | payer MEDICARE, SELFPAY ==
[2022-08-15 13:42] LABS: INR 4.3 (0.9-1.3); Prothrombin Time 50.6 SECONDS (10.1-12.7)
== END ==
PROVIDERS: PCP Student in an Organized Health Care Education/Training Program; Referring Provider Student in an Organized Health Care Education/Training Program; Visit Provider Student in an Organized Health Care Education/Training Program
DX: Z79.01 Long term (current) use of anticoagulants (principal)
CPT/HCPCS: 36415; 85610

== ENCOUNTER → 2022-09-01 15:25 | Outpatient (CLI) | payer MEDICARE, SELFPAY ==
[2022-09-01 15:44] LABS: INR 3.9 (0.9-1.3); Prothrombin Time 45.7 SECONDS (10.1-12.7)
== END ==
PROVIDERS: PCP Student in an Organized Health Care Education/Training Program; Referring Provider Student in an Organized Health Care Education/Training Program; Visit Provider Student in an Organized Health Care Education/Training Program
DX: Z79.01 Long term (current) use of anticoagulants (principal); I48.20 Chronic atrial fibrillation, unspecified
CPT/HCPCS: 36415; 85610

== ENCOUNTER → 2022-09-16 13:14 | Outpatient (CLI) | payer MEDICARE, SELFPAY ==
[2022-09-16 14:00] LABS: INR 2.5 (0.9-1.3); Prothrombin Time 29.1 SECONDS (10.1-12.7)
== END ==
PROVIDERS: PCP Student in an Organized Health Care Education/Training Program; Referring Provider Student in an Organized Health Care Education/Training Program; Visit Provider Student in an Organized Health Care Education/Training Program
DX: Z79.01 Long term (current) use of anticoagulants (principal); I48.20 Chronic atrial fibrillation, unspecified
CPT/HCPCS: 36415; 85610

== ENCOUNTER → 2022-10-17 16:45 | Outpatient (CLI) | payer MEDICARE, SELFPAY ==
[2022-10-17 17:35] LABS: INR 2.9 (0.9-1.3); Prothrombin Time 34.2 SECONDS (10.1-12.7)
== END ==
PROVIDERS: PCP Student in an Organized Health Care Education/Training Program; Referring Provider Student in an Organized Health Care Education/Training Program; Visit Provider Student in an Organized Health Care Education/Training Program
DX: Z79.01 Long term (current) use of anticoagulants (principal); I48.20 Chronic atrial fibrillation, unspecified
CPT/HCPCS: 36415; 85610

== ENCOUNTER → 2022-11-22 11:43 | Outpatient (CLI) | payer MEDICARE, SELFPAY ==
[2022-11-22 13:13] LABS: INR 2.8 (0.9-1.3); Prothrombin Time 32.6 SECONDS (10.1-12.7)
== END ==
PROVIDERS: PCP Student in an Organized Health Care Education/Training Program; Referring Provider Student in an Organized Health Care Education/Training Program; Visit Provider Student in an Organized Health Care Education/Training Program
DX: I48.20 Chronic atrial fibrillation, unspecified (principal); Z79.01 Long term (current) use of anticoagulants
CPT/HCPCS: 36415; 85610

== ENCOUNTER → 2022-12-24 14:19 | Outpatient (CLI) | payer MEDICARE, SELFPAY ==
[2022-12-24 15:06] LABS: INR 2.7 (0.9-1.3); Prothrombin Time 31.8 SECONDS (10.1-12.7)
== END ==
PROVIDERS: PCP Student in an Organized Health Care Education/Training Program; Referring Provider Student in an Organized Health Care Education/Training Program; Visit Provider Student in an Organized Health Care Education/Training Program
DX: Z79.01 Long term (current) use of anticoagulants (principal); I48.20 Chronic atrial fibrillation, unspecified
CPT/HCPCS: 36415; 85610

== ENCOUNTER → 2023-01-01 14:47 | Outpatient (CLI) | payer MEDICARE, SELFPAY ==
[2023-01-01 16:07] LABS: Alanine Aminotransferase 16 IU/L (<50); Albumin 3.7 g/dL (3.5-5.0); Albumin Globulin Ratio 1.4 (1.0-2.8); Alkaline Phosphatase 61 U/L (38-126); Aspartate Aminotransferase 26 IU/L (17-59); BUN Creatinine Ratio 16.7 (6-22); Bilirubin Total 0.8 mg/dL (0.2-1.3); Blood Urea Nitrogen 19 mg/dL (9-20); Calcium 8.5 mg/dL (8.4-10.2); Carbon Dioxide 30 mmol/L (22-32); Chloride 106 mmol/L (98-107); Estimated Glomerular Filt Rate > 60 mL/min (>60); Globulin 2.6 g/dL (1.7-4.1); Glucose 75 mg/dL (80-110); HEMOLYSIS < 15 (0-50); Potassium 4.5 mmol/L (3.4-5.1); Sodium 143 mmol/L (137-145); Total Protein 6.3 g/dL (6.3-8.2)
== END ==
PROVIDERS: PCP Student in an Organized Health Care Education/Training Program; Referring Provider Physician Assistant; Visit Provider Physician Assistant
DX: I48.0 Paroxysmal atrial fibrillation (principal)
CPT/HCPCS: 36415; 80053

== ENCOUNTER → 2023-01-21 15:37 | Outpatient (CLI) | payer MEDICARE, SELFPAY ==
[2023-01-21 16:35] LABS: INR 2.9 (0.9-1.3); Prothrombin Time 33.7 SECONDS (10.1-12.7)
== END ==
PROVIDERS: PCP Student in an Organized Health Care Education/Training Program; Referring Provider Student in an Organized Health Care Education/Training Program; Visit Provider Student in an Organized Health Care Education/Training Program
DX: I48.20 Chronic atrial fibrillation, unspecified (principal); Z79.01 Long term (current) use of anticoagulants
CPT/HCPCS: 36415; 85610

== ENCOUNTER → 2023-02-20 15:31 | Outpatient (CLI) | payer MEDICARE, SELFPAY ==
[2023-02-20 17:34] LABS: INR 2.5 (0.9-1.3); Prothrombin Time 28.6 SECONDS (10.1-12.7)
== END ==
PROVIDERS: PCP Student in an Organized Health Care Education/Training Program; Referring Provider Student in an Organized Health Care Education/Training Program; Visit Provider Student in an Organized Health Care Education/Training Program
DX: Z79.01 Long term (current) use of anticoagulants (principal); I48.20 Chronic atrial fibrillation, unspecified
CPT/HCPCS: 36415; 85610

== ENCOUNTER → 2023-03-26 14:49 | Outpatient (CLI) | payer MEDICARE, SELFPAY ==
[2023-03-26 15:49] LABS: INR 2.9 (0.9-1.3); Prothrombin Time 33.6 SECONDS (10.1-12.7)
== END ==
PROVIDERS: PCP Student in an Organized Health Care Education/Training Program; Referring Provider Student in an Organized Health Care Education/Training Program; Visit Provider Student in an Organized Health Care Education/Training Program
DX: I82.409 Acute embolism and thrombosis of unspecified deep veins of unspecified lower extremity (principal)
CPT/HCPCS: 36415; 85610

== ENCOUNTER → 2023-04-22 12:07 | Outpatient (CLI) | payer MEDICARE, SELFPAY ==
[2023-04-22 13:07] LABS: INR 2.3 (0.9-1.3); Prothrombin Time 26.1 SECONDS (10.1-12.7)
== END ==
PROVIDERS: PCP Pediatrics; Referring Provider Student in an Organized Health Care Education/Training Program; Visit Provider Student in an Organized Health Care Education/Training Program
DX: I48.20 Chronic atrial fibrillation, unspecified (principal)
CPT/HCPCS: 36415; 85610

== ENCOUNTER → 2023-04-28 13:59 | Outpatient (CLI) | payer MEDICARE, SELFPAY ==
[2023-04-28 14:35] LABS: Add Manual Diff / Slide Review NO; Basophils Absolute Auto 0 /uL (0-100); Basophils Percent Auto 0.5 % (0-2); Eosinophils Absolute Auto 100 /uL (0-450); Eosinophils Percent Auto 2.1 % (2-4); Hematocrit 43.2 % (41-53); Hemoglobin 14.6 g/dL (13.5-17.5); Lymphocytes Absolute Auto 1000 /uL (1100-4500); Lymphocytes Percent Auto 24.2 % (25-40); Mean Corpuscular HGB Conc 33.8 % (30-36); Mean Corpuscular Hemoglobin 32.3 PG (26-34); Mean Corpuscular Volume 95.4 fL (80-100); Monocytes Absolute Auto 400 /uL (0-900); Monocytes Percent Auto 9.7 % (3-14); Neutrophils Absolute Auto 2600 /uL (1500-7000); Neutrophils Percent Auto 63.5 % (50-75); Platelet Count 152 X10^3/uL (150-400); Red Blood Cell Count 4.53 X10^6/uL (4.5-5.9); White Blood Cell Count 4.1 X10^3/uL (4.5-11.0)
[2023-04-28 14:49] LABS: BUN Creatinine Ratio 14.2 (6-22); Blood Urea Nitrogen 17 mg/dL (9-20); Calcium 8.6 mg/dL (8.4-10.2); Carbon Dioxide 28 mmol/L (22-32); Chloride 107 mmol/L (98-107); Estimated Glomerular Filt Rate 59 mL/min (>60); Glucose 94 mg/dL (80-110); HEMOLYSIS < 15 (0-50); Potassium 4.5 mmol/L (3.4-5.1); Sodium 140 mmol/L (137-145)
== END ==
PROVIDERS: PCP Pediatrics; Referring Provider Internal Medicine Cardiovascular Disease; Visit Provider Internal Medicine Cardiovascular Disease
DX: I48.0 Paroxysmal atrial fibrillation (principal)
CPT/HCPCS: 36415; 80048; 85025

== ENCOUNTER → 2023-05-26 16:50 | Outpatient (CLI) | payer MEDICARE, SELFPAY ==
[2023-05-26 17:41] LABS: INR 3.6 (0.9-1.3); Prothrombin Time 41.7 SECONDS (10.1-12.7)
== END ==
PROVIDERS: PCP Family Medicine; Referring Provider Family Medicine; Visit Provider Family Medicine
DX: I82.409 Acute embolism and thrombosis of unspecified deep veins of unspecified lower extremity (principal)
CPT/HCPCS: 36415; 85610

== ENCOUNTER → 2023-06-03 15:49 | Outpatient (CLI) | payer MEDICARE, SELFPAY ==
[2023-06-03 17:40] LABS: Alanine Aminotransferase 16 IU/L (<50); Albumin 3.8 g/dL (3.5-5.0); Albumin Globulin Ratio 1.2 (1.0-2.8); Alkaline Phosphatase 73 U/L (38-126); Aspartate Aminotransferase 26 IU/L (17-59); BUN Creatinine Ratio 15.5 (6-22); Bilirubin Total 1.1 mg/dL (0.2-1.3); Blood Urea Nitrogen 20 mg/dL (9-20); Calcium 8.5 mg/dL (8.4-10.2); Carbon Dioxide 28 mmol/L (22-32); Chloride 107 mmol/L (98-107); Estimated Glomerular Filt Rate 54 mL/min (>60); Globulin 3.3 g/dL (1.7-4.1); Glucose 91 mg/dL (80-110); HEMOLYSIS < 15 (0-50); Potassium 4.4 mmol/L (3.4-5.1); Sodium 142 mmol/L (137-145); Total Protein 7.1 g/dL (6.3-8.2)
== END ==
PROVIDERS: PCP Family Medicine; Referring Provider Physician Assistant; Visit Provider Physician Assistant
DX: I48.0 Paroxysmal atrial fibrillation (principal)
CPT/HCPCS: 36415; 80053

== ENCOUNTER → 2023-06-17 13:55 | Outpatient (CLI) | payer MEDICARE, SELFPAY ==
[2023-06-17 16:43] LABS: INR 3.5 (0.9-1.3); Prothrombin Time 40.3 SECONDS (10.1-12.7)
[2023-06-17 17:08] LABS: Bacteria Urine Many (>30); Culture Indicated Urine Specimen Cultured; RBC Urine 30-100/HPF (0-5/HPF); Squamous Epithelial Cell Urine 1-5 /HPF (0-5/HPF); WBC Urine 30-100/HPF (0-5/HPF)
== END ==
PROVIDERS: Pediatrics; PCP Family Medicine; Referring Provider Family Medicine; Visit Provider Family Medicine
DX: R31.9 Hematuria, unspecified (principal); I82.409 Acute embolism and thrombosis of unspecified deep veins of unspecified lower extremity
CPT/HCPCS: 36415; 81015; 85610; 87077; 87086; 87186

== ENCOUNTER 2023-06-28 11:08 | Emergency (ER) | payer MEDICARE, SELFPAY ==
[2023-06-28 11:16] VITALS: BP 130/71; PULSE 75; RESP 18; TEMP 36.5; O2SAT 97; BMI 30.4
--- NOTE | 2023-06-28 11:26 | ED.EXTPRO ---
HPI - Extremity Problem <Cherry Mar Alexx, [facility] - Last Filed: 06/28/23 15:30> General Chief complaint: Skin/Abscess/Foreign Body Stated complaint: Rt leg redness & swelling Time Seen by Provider: 06/28/23 11:17 History of Present Illness HPI Narrative: This is an 87-year-old gentleman who presents to the emergency department with increasing redness to his right lower leg with edema. Patient denies pain to this area, states that his noticed it was susanna in appearance and recommended he go to the emergency department. Patient has a history factor 5 Leiden, a DVT in his remote history, and is now anticoagulated on warfarin for atrial fibrillation. States that he went into AFib about the time he had a urinary tract infection couple weeks ago and was almost cardioverted but self converted prior to. He was treated for a UTI on 06/17/2023 with 1 week of Bactrim. Urine culture grew Klebsiella pneumoniae and shows susceptibility to Bactrim although patient reports having ongoing hematuria and thinks he still has a urinary tract infection.. At that time he had an INR of 3.5. He denies fever, chills, nausea vomiting. Patient's states that patient has been sitting in a chair for long periods of time because he has a history of lumbar radiculopathy with sciatica which patient states causes his legs to be weak. She states that his lower legs have been dependent since he has been sitting in his chair for long periods of time and he has not been elevating them. He denies any pain. Related Data Home Medications Medication Instructions Recorded Confirmed dorzolamide 22.3 mg-timolol 6.8 1 drp ophthalmic (eye) BID 08/31/18 07/08/22 mg/mL eye drops latanoprost 0.005 % eye drops 1 drp ophthalmic (eye) BEDTIME 08/31/18 07/08/22 Previous Rx's Medication Instructions Recorded dofetilide 125 mcg capsule 125 mcg PO BID #180 caps 11/15/20 warfarin 5 mg tablet See Rx Instructions .Route 04/15/22 .COMPLEX #90 tabs gabapentin 600 mg tablet 600 mg PO TID #90 tabs 07/17/22 simvastatin 20 mg tablet 20 mg PO QPM #90 tabs 05/19/23 cefpodoxime 100 mg tablet 100 mg PO BID 10 days #20 tabs 06/28/23 Allergies Allergy/AdvReac Type Severity Reaction Status Date / Time No Known Drug Allergies Allergy Verified 06/28/23 11:25 Review of Systems <ENA Klein - Last Filed: 06/28/23 15:30> Review of Systems ROS Unobtainable: All systems reviewed & are unremarkable except as noted in HPI and below Patient History <ENA Klein - Last Filed: 06/28/23 15:30> Medical History (Updated 06/28/23 @ 13:28 by ENA Klein) Acne Allergic rhinitis Atrial fibrillation (2009) Basal cell carcinoma Cataracts, bilateral (1997) CHF (congestive heart failure) (~01/2012) Colon polyps (09/2008) Coronary artery disease Factor V Leiden History of deep venous thrombosis (10/02/15) Hx of deep venous thrombosis Hyperlipidemia Hypothyroidism Low back pain Osteoarthritis (~2015) Polyneuropathy (1991) Prostate cancer (2000) Retinal detachment (~1992) Skin cancer Sleep apnea (2003) Surgical History History of cataract removal with insertion of prosthetic lens (1997) Hx of colonoscopy with polypectomy (09/2008) Hx of detached retina repair (~1992) Status post hernia repair (1999) Status post radical cystoprostatectomy (2000) Family History Brother Heart disease Brother Cancer Sister No problems noted. Father Cancer Mother No problems noted. Social History Smoking Status: Never smoker alcohol intake: never substance use type: does not use Smoking Status: Never smoker alcohol intake frequency: 0-2 drinks per day Alcohol type: wine Substance Use Type: does not use Exam <ENA Klein - Last Filed: 06/28/23 15:30> Narrative Exam Narrative: Reviewed vitals signs and nursing notes. General: Pleasant, sitting upright, in no acute distress, well groomed, afebrile HEENT: symmetrical facial expressions, moist mucous membranes, neck is supple CV: regular rate and rhythm, warm extremities Respiratory: normal work of breathing, without tachypnea or hypoxia. GI: abdomen soft, nondistended, without CVA tenderness bilaterally. MSK: moves all extremities, no weakness, normal tone, ambulatory with a cane, slow but no deficits Skin: brisk capillary refill, bilateral lower extremities with 1+ edema, ready and dry in appearance, nontender to palpation, no crepitus or wound, no drainage Neuro: clear speech and normal cognition, A&O x3, GCS 15, no focal motor or sensation deficits Initial Vital Signs Initial Vital Signs: Vital Signs Temperature 97.7 F 06/28/23 11:16 Pulse Rate 75 06/28/23 11:16 Respiratory Rate 18 06/28/23 11:16 Blood Pressure 130/71 06/28/23 11:16 Pulse Oximetry 97 06/28/23 11:16 Oxygen Delivery Method Room Air 06/28/23 11:16 <Royer Marquez DO - Last Filed: 06/28/23 16:55> Initial Vital Signs Initial Vital Signs: Vital Signs Temperature 97.7 F 06/28/23 11:16 Pulse Rate 75 06/28/23 11:16 Respiratory Rate 18 06/28/23 11:16 Blood Pressure 130/71 06/28/23 11:16 Pulse Oximetry 97 06/28/23 11:16 Oxygen Delivery Method Room Air 06/28/23 11:16 Course <ENA Klein - Last Filed: 06/28/23 15:30> Orders Ordered: ED Orders 06/28/23 11:28 US periph venous low extrem rt Stat 06/28/23 11:35 CBC Auto Diff [Complete Blood Count AUTO DIFF] Stat CMP [Comprehensive Metabolic Panel] Stat Prothrombin Time INR Stat 06/28/23 11:54 UA Complete [Urinalysis and Microscopic] Stat Urine Culture Stat 06/28/23 12:04 Protein Creatinine Ratio Urine Routine Discontinued Medications Ceftriaxone Sodium 1,000 mg/ (Sodium Chloride) 100 mls @ 200 mls/hr IV NOW ONE Stop: 06/28/23 11:34 Last Infusion: 06/28/23 12:30 Dose: 0 mls/hr Documented By: Admin: 06/28/23 11:47 Dose: 200 mls/hr Documented By: LESVIA Sodium Chloride (Normal Saline 0.9%) 1,000 mls @ 1,000 mls/hr IV BOLUS ONE Stop: 06/28/23 13:02 Last Infusion: 06/28/23 13:25 Dose: 0 mls/hr Documented By: Admin: 06/28/23 12:37 Dose: 1,000 mls/hr Documented By: NASH Vital Signs Vital signs: Vital Signs - 8 hr 06/28/23 11:16 06/28/23 12:19 06/28/23 12:30 Temperature 97.7 F Pulse Rate 75 83 52 L Respiratory Rate 18 Blood Pressure 130/71 Pulse Oximetry 97 97 Oxygen Delivery Method Room Air 06/28/23 12:42 06/28/23 12:42 06/28/23 13:00 Temperature Pulse Rate 53 L Respiratory Rate 20 Blood Pressure 122/88 120/60 Pulse Oximetry 98 Oxygen Delivery Method Room Air 06/28/23 13:00 Temperature Pulse Rate 50 L Respiratory Rate 17 Blood Pressure Pulse Oximetry 98 Oxygen Delivery Method Room Air <Royer Marquez, DO - Last Filed: 06/28/23 16:55> Orders Ordered: ED Orders 06/28/23 11:28 US periph venous low extrem rt Stat 06/28/23 11:35 CBC Auto Diff [Complete Blood Count AUTO DIFF] Stat CMP [Comprehensive Metabolic Panel] Stat Prothrombin Time INR Stat 06/28/23 11:54 UA Complete [Urinalysis and Microscopic] Stat Urine Culture Stat 06/28/23 12:04 Protein Creatinine Ratio Urine Routine Discontinued Medications Ceftriaxone Sodium 1,000 mg/ (Sodium Chloride) 100 mls @ 200 mls/hr IV NOW ONE Stop: 06/28/23 11:34 Last Infusion: 06/28/23 12:30 Dose: 0 mls/hr Documented By: Admin: 06/28/23 11:47 Dose: 200 mls/hr Documented By: LESVIA Sodium Chloride (Normal Saline 0.9%) 1,000 mls @ 1,000 mls/hr IV BOLUS ONE Stop: 06/28/23 13:02 Last Infusion: 06/28/23 13:25 Dose: 0 mls/hr Documented By: Admin: 06/28/23 12:37 Dose: 1,000 mls/hr Documented By: NASH Vital Signs Vital signs: Vital Signs - 8 hr 06/28/23 11:16 06/28/23 12:19 06/28/23 12:30 Temperature 97.7 F Pulse Rate 75 83 52 L Respiratory Rate 18 Blood Pressure 130/71 Pulse Oximetry 97 97 Oxygen Delivery Method Room Air 06/28/23 12:42 06/28/23 12:42 06/28/23 13:00 Temperature Pulse Rate 53 L Respiratory Rate 20 Blood Pressure 122/88 120/60 Pulse Oximetry 98 Oxygen Delivery Method Room Air 06/28/23 13:00 Temperature Pulse Rate 50 L Respiratory Rate 17 Blood Pressure Pulse Oximetry 98 Oxygen Delivery Method Room Air MDM - Extremity (Nontraumatic) <ENA Klein - Last Filed: 06/28/23 15:30> Lab Data Lab results narrative: [facility] CLIA ID [id number] [address] [place] [address], [address] RUN DATE: 06/28/23 Specimen Inquiry PAGE 1 RUN TIME: 1224 Name: Reginaldo randall Paxton Age/Sex: 87/M Attend Dr: Kehinde Lindsey D.O. Unit#: [id number] : 1935Location: LAB Re06/17/23 Disch: Status: REG CLI SPEC #: [id number] TERA: 06/17/23 STATUS: COMP REQ #: [id number] SPDESC: RECD: 06/17/[address]: Kehinde Lindsey D.O. SOURCE: UA Reflex ENTR: 06/17/23-[address]: FAX TO: ORDERED: URINE CULTURE Procedure Result Verified Site Urine Culture Final 06/19/23 Organism 1 Klebsiella pneumoniae [place] Count >100,000 CFU/ml Action to follow No Further Workup 1. Klebsiella pneumoniae M.I.C. RX --------- --- * Amoxicillin/Clavulanate <=2 S * Ampicillin >=32 R * Ampicillin/Sulbactam 4 S * Cefazolin <=4 S * Cefepime <=1 S * Ceftazidime <=1 S * Ceftriaxone <=1 S * Ciprofloxacin <=0.25 S * Ertapenem <=0.5 S * Gentamicin <=1 S * Imipenem <=0.25 S * Levofloxacin <=0.12 S * Nitrofurantoin 64 I * Tobramycin <=1 S * Trimethoprim/Sulfamethoxazole <=20 S * Piperacillin/Tazobactam <=4 S 06/28/23 11:35 06/28/23 11:35 Labs: Lab Results 06/28/23 06/28/23 06/28/23 Range/Units 11:35 11:35 11:35 WBC 3.2 L (4.5-11.0) X10^3/uL RBC 4.34 L (4.5-5.9) X10^6/uL Hgb 14.0 (13.5-17.5) g/dL Hct 41.8 (41-53) % MCV 96.2 (80-100) fL MCH 32.2 (26-34) PG MCHC 33.4 (30-36) % RDW 13.6 (11.6-14.8) % Plt Count 138 L (150-400) X10^3/uL Neut % (Auto) 62.3 (50-75) % Lymph % (Auto) 22.1 L (25-40) % [place] % (Auto) 11.0 (3-14) % Eos % (Auto) 3.5 (2-4) % Baso % (Auto) 1.1 (0-2) % Neut # (Auto) 2000 (1603-5336) /uL Lymph # (Auto) 700 L (7807-8154) /uL [place] # (Auto) 300 (0-900) /uL Eos # (Auto) 100 (0-450) /uL Baso # (Auto) 0 (0-100) /uL PT 50.7 H (10.1-12.7) SECONDS INR 4.3 H (0.9-1.3) Sodium 138 (137-145) mmol/L Potassium 4.6 (3.4-5.1) mmol/L Chloride 106 (98-107) mmol/L Carbon Dioxide 25 (22-32) mmol/L BUN 23 H (9-20) mg/dL Creatinine 1.50 H (0.66-1.25) mg/dL Estimated GFR 45 L (>60) mL/min BUN/Creatinine Ratio 15.3 (6-22) Glucose 115 H (80-110) mg/dL Calcium 8.6 (8.4-10.2) mg/dL Total Bilirubin 0.6 (0.2-1.3) mg/dL AST 28 (17-59) IU/L ALT 17 (<50) IU/L Alkaline Phosphatase 62 (38-126) U/L Total Protein 6.7 (6.3-8.2) g/dL Albumin 3.7 (3.5-5.0) g/dL Globulin 3.0 (1.7-4.1) g/dL Albumin/Globulin Ratio 1.2 (1.0-2.8) Urine Color Urine Appearance Urine pH (4.5-8.0) Ur Specific [place] (1.000-1.035) Urine Protein (Negative) Urine Glucose (UA) (Negative) g/dL Urine Ketones (NEGATIVE) Urine Occult Blood (Negative) Urine Nitrate (Negative) Urine Bilirubin (NEGATIVE) Urine Urobilinogen (0.2) E.U./dL Ur Leukocyte Esterase (NEGATIVE) Urine RBC (0-5/HPF) Urine WBC (0-5/HPF) Ur Squamous Epith Cells (0-5/HPF) Urine Bacteria (None) Ur Culture Indicated? U Random Total Protein (0-12) mg/dL Urine Collection Time Urine Total Volume Urine Creatinine Height (in) Weight (lb) Creatinine Clearance Corrected Creat Clear Protein/Creatinin Ratio GRAM/24H 06/28/23 06/28/23 06/28/23 Range/Units 11:54 11:54 12:04 WBC (4.5-11.0) X10^3/uL RBC (4.5-5.9) X10^6/uL Hgb (13.5-17.5) g/dL Hct (41-53) % MCV (80-100) fL MCH (26-34) PG MCHC (30-36) % RDW (11.6-14.8) % Plt Count (150-400) X10^3/uL Neut % (Auto) (50-75) % Lymph % (Auto) (25-40) % [place] % (Auto) (3-14) % Eos % (Auto) (2-4) % Baso % (Auto) (0-2) % Neut # (Auto) (4065-5308) /uL Lymph # (Auto) (8216-0105) /uL [place] # (Auto) (0-900) /uL Eos # (Auto) (0-450) /uL Baso # (Auto) (0-100) /uL PT (10.1-12.7) SECONDS INR (0.9-1.3) Sodium (137-145) mmol/L Potassium (3.4-5.1) mmol/L Chloride (98-107) mmol/L Carbon Dioxide (22-32) mmol/L BUN (9-20) mg/dL Creatinine Cancelled (0.66-1.25) mg/dL Estimated GFR (>60) mL/min BUN/Creatinine Ratio (6-22) Glucose (80-110) mg/dL Calcium (8.4-10.2) mg/dL Total Bilirubin (0.2-1.3) mg/dL AST (17-59) IU/L ALT (<50) IU/L Alkaline Phosphatase (38-126) U/L Total Protein (6.3-8.2) g/dL Albumin (3.5-5.0) g/dL Globulin (1.7-4.1) g/dL Albumin/Globulin Ratio (1.0-2.8) Urine Color Arlyn Urine Appearance Cloudy Urine pH 5.0 (4.5-8.0) Ur Specific [place] >=1.030 H (1.000-1.035) Urine Protein 1+ H (Negative) Urine Glucose (UA) Negative (Negative) g/dL Urine Ketones Negative (NEGATIVE) Urine Occult Blood 3+ H (Negative) Urine Nitrate Negative (Negative) Urine Bilirubin Negative (NEGATIVE) Urine Urobilinogen 1.0 (0.2) E.U./dL Ur Leukocyte Esterase 1+ H (NEGATIVE) Urine RBC >100/hpf H (0-5/HPF) Urine WBC 10-30/hpf H (0-5/HPF) Ur Squamous Epith Cells 1-5 /hpf (0-5/HPF) Urine Bacteria None seen (None) Ur Culture Indicated? Specimen cultured U Random Total Protein 30 H (0-12) mg/dL Urine Collection Time Cancelled Urine Total Volume Cancelled Urine Creatinine Cancelled 192.2 Height (in) Cancelled Weight (lb) Cancelled Creatinine Clearance Cancelled Corrected Creat Clear Cancelled Protein/Creatinin Ratio 0.15 GRAM/24H Urine Dip Bedside Urine Glucose Negative Bedside Urine Bilirubin - Negative Bedside Urine Ketone - Negative Urine Specific [place] 1.030 Bedside Urine Occult Blood +++ Bedside Urine pH 5.5 Bedside Urine Protein + 30 Bedside Urine Urobilinogen - Negative Bedside Urine Nitrite - Negative Bedside Urine Leukocytes ++ 125 Esterase Imaging Data US - DVT: Radiologist's Impression: [address] [address] Ultrasound Report Signed Patient: Reginaldo Venegas MR#: [id number] : 1935 Acct:[id number] Age/Sex: 87 / M Date of Service: 06/28/23 Loc: ED Accession Number: [id number] ?? Procedure: US periph venous low extrem rt Ordering Provider: Cherry Coffey PROCEDURE:? US PERIPH VENOUS LOW EXTREM RT ? INDICATIONS:? EDEMA; ERYTHEMA ? TECHNIQUE:? Real-time imaging, as well as color and pulse Doppler interrogation, were performed of the lower extremity deep veins from the inguinal ligament to the popliteal fossa.? ? COMPARISON:? None. ? FINDINGS:? The common femoral, femoral and popliteal veins are normally compressible, and free of intraluminal thrombus.? Color and pulse Doppler demonstrate normal phasic intraluminal flow.? There is normal augmentation response to distal compression maneuver. ? IMPRESSION:? No evidence of deep venous thrombosis, right lower extremity ?? Approved by: Gualberto Josue M.D. on 06/28/2023 at 14:08? [facility] Narrative Medical decision making narrative: Chief Complaint: Swelling and redness to lower extremity Multiple etiologies for patient's complaint considered including, but not limited to: DVT, venous stasis, cellulitis, bacteremia, Klebsiella pneumoniae soft tissue infection, necrotizing skin infection, ESBL producing K. pneumoniae, pyelonephritis, nephrolithiasis, anemia, supratherapeutic INR I have independently reviewed the patient's vital signs and nursing notes as well as prior records if available. Urine dip is positive for WBCs, blood and protein, sent to lab for micro and culture Patient's warfarin dosing is 2.5 mg daily x 5 days and 2 days at 5 mg each week, last INR was 3.5 on 06/17/2023, patient's INR goal is 2.0-3.0 Plan: Ultrasound DVT right lower extremity, UA with culture, IV ceftriaxone My interpretation of diagnostic testing: Patient has leukopenia of 3.2, down from prior of 4.1 on 04/28/2023, without anemia, thrombocytopenia which is new at 01:38 compared to 152 on 04/28/2023. Patient's INR is elevated today at 4.3 compared to most recently at 3.5 on 06/17/2023. Serum creatinine is 1.5, this is increased from 1.29 on 06/03/2023. Patient's baseline creatinine is 1.2. His GFR has decreased to 45 today, down from 54 and 59 previously. No elevated liver enzymes or T bilirubin. Patient is nontoxic, afebrile, without upper UTI symptoms. UA is positive for infection, treated with ceftriaxone, will discharge on a cephalosporin. Patient's prior culture shows resistance only to ampicillin and indeterminate for Macrobid. Recommended patient hold his warfarin for 2 days, have it redrawn on 06/30/2023 prior to starting his dosing, will discharge on cefpodoxime 100 mg b.i.d. times 10 days for his creatinine. He was given 1 L of normal saline for decreased GFR, tolerated this well, venous duplex of his right lower extremities negative for DVT and provided reassurance to patient and his . Encouraged stocking hose as needed for edema to bilateral lower extremities, he does have venous stasis and has been sitting more than usual. He does not have symptoms of cauda equina today, is continent, without midline spinal tenderness, current sciatica or decreased reflexes. He was given contact information for Dr. Mccoy to schedule follow-up if he has recurrence of this UTI. He has a remote history of prostate cancer without a TURP. Social considerations that may affect disposition: none Questions are addressed and there is agreement with the plan and for follow-up. I consulted with the ED attending physician Dr. Marquez as needed for higher level of care considerations and they were available for discussion and recommendations regarding plan of care and diagnostic testing. Patient is appropriate for outpatient management. <Royer Marquez, DO - Last Filed: 06/28/23 16:55> Lab Data Labs: Lab Results 06/28/23 06/28/23 06/28/23 Range/Units 11:35 11:35 11:35 WBC 3.2 L (4.5-11.0) X10^3/uL RBC 4.34 L (4.5-5.9) X10^6/uL Hgb 14.0 (13.5-17.5) g/dL Hct 41.8 (41-53) % MCV 96.2 (80-100) fL MCH 32.2 (26-34) PG MCHC 33.4 (30-36) % RDW 13.6 (11.6-14.8) % Plt Count 138 L (150-400) X10^3/uL Neut % (Auto) 62.3 (50-75) % Lymph % (Auto) 22.1 L (25-40) % [place] % (Auto) 11.0 (3-14) % Eos % (Auto) 3.5 (2-4) % Baso % (Auto) 1.1 (0-2) % Neut # (Auto) 2000 (3935-6435) /uL Lymph # (Auto) 700 L (5813-2734) /uL [place] # (Auto) 300 (0-900) /uL Eos # (Auto) 100 (0-450) /uL Baso # (Auto) 0 (0-100) /uL PT 50.7 H (10.1-12.7) SECONDS INR 4.3 H (0.9-1.3) Sodium 138 (137-145) mmol/L Potassium 4.6 (3.4-5.1) mmol/L Chloride 106 (98-107) mmol/L Carbon Dioxide 25 (22-32) mmol/L BUN 23 H (9-20) mg/dL Creatinine 1.50 H (0.66-1.25) mg/dL Estimated GFR 45 L (>60) mL/min BUN/Creatinine Ratio 15.3 (6-22) Glucose 115 H (80-110) mg/dL Calcium 8.6 (8.4-10.2) mg/dL Total Bilirubin 0.6 (0.2-1.3) mg/dL AST 28 (17-59) IU/L ALT 17 (<50) IU/L Alkaline Phosphatase 62 (38-126) U/L Total Protein 6.7 (6.3-8.2) g/dL Albumin 3.7 (3.5-5.0) g/dL Globulin 3.0 (1.7-4.1) g/dL Albumin/Globulin Ratio 1.2 (1.0-2.8) Urine Color Urine Appearance Urine pH (4.5-8.0) Ur Specific [place] (1.000-1.035) Urine Protein (Negative) Urine Glucose (UA) (Negative) g/dL Urine Ketones (NEGATIVE) Urine Occult Blood (Negative) Urine Nitrate (Negative) Urine Bilirubin (NEGATIVE) Urine Urobilinogen (0.2) E.U./dL Ur Leukocyte Esterase (NEGATIVE) Urine RBC (0-5/HPF) Urine WBC (0-5/HPF) Ur Squamous Epith Cells (0-5/HPF) Urine Bacteria (None) Ur Culture Indicated? U Random Total Protein (0-12) mg/dL Urine Collection Time Urine Total Volume Urine Creatinine Height (in) Weight (lb) Creatinine Clearance Corrected Creat Clear Protein/Creatinin Ratio GRAM/24H 06/28/23 06/28/23 06/28/23 Range/Units 11:54 11:54 12:04 WBC (4.5-11.0) X10^3/uL RBC (4.5-5.9) X10^6/uL Hgb (13.5-17.5) g/dL Hct (41-53) % MCV (80-100) fL MCH (26-34) PG MCHC (30-36) % RDW (11.6-14.8) % Plt Count (150-400) X10^3/uL Neut % (Auto) (50-75) % Lymph % (Auto) (25-40) % [place] % (Auto) (3-14) % Eos % (Auto) (2-4) % Baso % (Auto) (0-2) % Neut # (Auto) (5452-7339) /uL Lymph # (Auto) (4269-8832) /uL [place] # (Auto) (0-900) /uL Eos # (Auto) (0-450) /uL Baso # (Auto) (0-100) /uL PT (10.1-12.7) SECONDS INR (0.9-1.3) Sodium (137-145) mmol/L Potassium (3.4-5.1) mmol/L Chloride (98-107) mmol/L Carbon Dioxide (22-32) mmol/L BUN (9-20) mg/dL Creatinine Cancelled (0.66-1.25) mg/dL Estimated GFR (>60) mL/min BUN/Creatinine Ratio (6-22) Glucose (80-110) mg/dL Calcium (8.4-10.2) mg/dL Total Bilirubin (0.2-1.3) mg/dL AST (17-59) IU/L ALT (<50) IU/L Alkaline Phosphatase (38-126) U/L Total Protein (6.3-8.2) g/dL Albumin (3.5-5.0) g/dL Globulin (1.7-4.1) g/dL Albumin/Globulin Ratio (1.0-2.8) Urine Color Arlyn Urine Appearance Cloudy Urine pH 5.0 (4.5-8.0) Ur Specific [place] >=1.030 H (1.000-1.035) Urine Protein 1+ H (Negative) Urine Glucose (UA) Negative (Negative) g/dL Urine Ketones Negative (NEGATIVE) Urine Occult Blood 3+ H (Negative) Urine Nitrate Negative (Negative) Urine Bilirubin Negative (NEGATIVE) Urine Urobilinogen 1.0 (0.2) E.U./dL Ur Leukocyte Esterase 1+ H (NEGATIVE) Urine RBC >100/hpf H (0-5/HPF) Urine WBC 10-30/hpf H (0-5/HPF) Ur Squamous Epith Cells 1-5 /hpf (0-5/HPF) Urine Bacteria None seen (None) Ur Culture Indicated? Specimen cultured U Random Total Protein 30 H (0-12) mg/dL Urine Collection Time Cancelled Urine Total Volume Cancelled Urine Creatinine Cancelled 192.2 Height (in) Cancelled Weight (lb) Cancelled Creatinine Clearance Cancelled Corrected Creat Clear Cancelled Protein/Creatinin Ratio 0.15 GRAM/24H Urine Dip Bedside Urine Glucose Negative Bedside Urine Bilirubin - Negative Bedside Urine Ketone - Negative Urine Specific [place] 1.030 Bedside Urine Occult Blood +++ Bedside Urine pH 5.5 Bedside Urine Protein + 30 Bedside Urine Urobilinogen - Negative Bedside Urine Nitrite - Negative Bedside Urine Leukocytes ++ 125 Esterase Discharge Plan Departure Patient Disposition: Home Clinical Impression: Edema of right lower leg due to venous stasis, Recurrent UTI, Anticoagulated on warfarin, History of atrial fibrillation, Factor V Leiden, History of prostate cancer, Supratherapeutic INR, Encounter for assessment for deep vein thrombosis (DVT) Instructions: DI for Urinary Tract Infection (UTI), DI for Edema Due to Venous Stasis Activity Restrictions/Additional Instructions: *You have been diagnosed with a urinary tract infection. Please take this antibiotic twice a day for the next 10 days and do not miss any doses, start this medication tomorrow on 06/29. Please hold your warfarin tonight and tomorrow and schedule an INR redraw on June 30. Then you can plan for your dosing to resume if appropriate. Please stay hydrated, drink plenty of fluids especially over the next few days. Void frequently, schedule follow-up with Dr. Lindsey for a recheck as able. If you still have ongoing urinary problems, please schedule an appointment with Dr. Mccoy, he is a urologist, I have forwarded a copy of your chart to him. The ultrasound was negative for DVT, luckily the warfarin will protect you from developing clots, please remember to have your INR redrawn on June 30. Try to elevate your legs, consider going for short walks to increase the venous return so the legs do not become swollen. You can use compression stockings or Cal[place] bandages if you feel the edema is increasing. *What to do: *Please continue to take your regular medications as directed. [x ] New medication prescriptions sent to your pharmacy: [[facility]] [ ] New medication written as a paper prescription [ ] No new medications given *Please call and schedule follow up with your primary care provider in 2-3 days, at least for an update. Let them know you were seen in the Emergency Department for the above problem. We will electronically transmit a record of today's note if your PCP or specialist is in our system. *If you do not have a primary care provider please contact [phone] to establish care with one of the [facility] primary care providers. *Return to the Emergency Department for worsening symptoms, inability to keep liquids down, fever greater than 101F, chills, or other concerning symptom. Prescriptions: New cefpodoxime 100 mg tablet 100 mg PO BID 10 Days Qty: 20 0RF Rx Instructions: must administer with a meal/food No Action dofetilide 125 mcg capsule 125 mcg PO BID Qty: 180 0RF Hold Instructions: Prescribed by cardiology Rx Instructions: PT DUE FOR FOLLOW UP WITH PCP PRIOR TO FUTURE FILLS. PLEASE CALL TO SCHED. APPT. THANKS 11/15/20 warfarin 5 mg tablet See Rx Instructions .ROUTE .COMPLEX Qty: 90 0RF Dose Instruction: TAKE TAKE 1/2 TABLET BY MOUTH THURSDAY AND THURSDAY AND TAKE 1 TABLET BY MOUTH ALL OTHER DAYS OR DIRECTED Rx Instructions: TAKE TAKE 1/2 TABLET BY MOUTH THURSDAY AND THURSDAY AND TAKE 1 TABLET BY MOUTH ALL OTHER DAYS OR DIRECTED gabapentin 600 mg tablet 600 mg PO TID Qty: 90 1RF simvastatin 20 mg tablet 20 mg PO QPM Qty: 90 0RF latanoprost 0.005 % Drops 1 drp ophthalmic (eye) BEDTIME dorzolamide-timolol 22.3-6.8 mg/mL Drops 1 drp ophthalmic (eye) BID Referrals: Kehinde Lindsey DO [Primary Care Provider] - Joe Mccoy MD [Physician] - (Please schedule follow-up with Dr. Mccoy from Urology if you do not improve with these antibiotics.) Stand Alone Forms: Patient Portal/API <Royer Marquez DO - Last Filed: 06/28/23 16:55> Cosign ED Attending Cosaminaature Attestation: I was immediately available in the department for consultation. Documentation has been reviewed. I agree with assessment and plan.
--- NOTE | 2023-06-28 11:28 | DI.US.S_ITS ---
PROCEDURE: US PERIPH VENOUS LOW EXTREM RT INDICATIONS: EDEMA; ERYTHEMA TECHNIQUE: Real-time imaging, as well as color and pulse Doppler interrogation, were performed of the lower extremity deep veins from the inguinal ligament to the popliteal fossa. COMPARISON: None. FINDINGS: The common femoral, femoral and popliteal veins are normally compressible, and free of intraluminal thrombus. Color and pulse Doppler demonstrate normal phasic intraluminal flow. There is normal augmentation response to distal compression maneuver. IMPRESSION: No evidence of deep venous thrombosis, right lower extremity Approved by: Gualberto Josue M.D. on 06/28/2023 at 14:08
[2023-06-28] MEDS: cefTRIAXone 1,000 MG in SODIUM CHLORIDE 0.9% 100 ML 200 MG IV (11:47)
[2023-06-28 11:49] LABS: Add Manual Diff / Slide Review NO; Basophils Absolute Auto 0 /uL (0-100); Basophils Percent Auto 1.1 % (0-2); Eosinophils Absolute Auto 100 /uL (0-450); Eosinophils Percent Auto 3.5 % (2-4); Hematocrit 41.8 % (41-53); Lymphocytes Absolute Auto 700 /uL (1100-4500); Lymphocytes Percent Auto 22.1 % (25-40); Mean Corpuscular HGB Conc 33.4 % (30-36); Mean Corpuscular Hemoglobin 32.2 PG (26-34); Mean Corpuscular Volume 96.2 fL (80-100); Monocytes Absolute Auto 300 /uL (0-900); Neutrophils Absolute Auto 2000 /uL (1500-7000); Neutrophils Percent Auto 62.3 % (50-75); Platelet Count 138 X10^3/uL (150-400); Red Blood Cell Count 4.34 X10^6/uL (4.5-5.9); Red Cell Distribution Width 13.6 % (11.6-14.8); White Blood Cell Count 3.2 X10^3/uL (4.5-11.0)
[2023-06-28 11:51] LABS: INR 4.3 (0.9-1.3); Prothrombin Time 50.7 SECONDS (10.1-12.7)
[2023-06-28 11:55] LABS: Alanine Aminotransferase 17 IU/L (<50); Albumin 3.7 g/dL (3.5-5.0); Albumin Globulin Ratio 1.2 (1.0-2.8); Alkaline Phosphatase 62 U/L (38-126); Aspartate Aminotransferase 28 IU/L (17-59); BUN Creatinine Ratio 15.3 (6-22); Bilirubin Total 0.6 mg/dL (0.2-1.3); Blood Urea Nitrogen 23 mg/dL (9-20); Calcium 8.6 mg/dL (8.4-10.2); Carbon Dioxide 25 mmol/L (22-32); Chloride 106 mmol/L (98-107); Estimated Glomerular Filt Rate 45 mL/min (>60); Glucose 115 mg/dL (80-110); HEMOLYSIS < 15 (0-50); Potassium 4.6 mmol/L (3.4-5.1); Sodium 138 mmol/L (137-145); Total Protein 6.7 g/dL (6.3-8.2)
[2023-06-28 12:12] LABS: Bilirubin Urine UA NEGATIVE (NEGATIVE); Glucose Urine UA NEGATIVE (Negative); Ketones Urine UA NEGATIVE (NEGATIVE); Leukocyte Esterase Urine UA 1+ (NEGATIVE); Nitrite Urine UA NEGATIVE (Negative); Occult Blood Urine UA 3+ (Negative); Protein Urine UA 1+ (Negative); Specific Gravity Urine UA >=1.030 (1.000-1.035)
[2023-06-28 12:19] VITALS: PULSE 83
[2023-06-28 12:26] LABS: Appearance Urine UA Cloudy; Color Urine UA Amber
[2023-06-28 12:30] VITALS: PULSE 52; O2SAT 97
[2023-06-28 12:35] LABS: Bacteria Urine None Seen; Culture Indicated Urine Specimen Cultured; RBC Urine >100/HPF (0-5/HPF); Squamous Epithelial Cell Urine 1-5 /HPF (0-5/HPF); WBC Urine 10-30/HPF (0-5/HPF)
[2023-06-28] MEDS: SODIUM CHLORIDE 0.9% 1,000 ML 1000 ML IV (12:37)
[2023-06-28 12:39] LABS: Creatinine Urine Random 192.2 mg/dL
[2023-06-28 12:42] VITALS: BP 122/88; PULSE 53; RESP 20; O2SAT 98
[2023-06-28 12:58] LABS: Protein (Total) Urine Random 30 mg/dL (0-12); Protein Creatinine Ratio Urine 0.15 GRAM/24H
[2023-06-28 13:00] VITALS: BP 120/60; PULSE 50; RESP 17; O2SAT 98
== END 2023-06-28 13:30 | disposition home or self-care (01) ==
PROVIDERS: Emergency Provider Nurse Practitioner Critical Care Medicine; PCP Family Medicine
DX: I87.8 Other specified disorders of veins (principal); N39.0 Urinary tract infection, site not specified; I48.91 Unspecified atrial fibrillation; Z79.01 Long term (current) use of anticoagulants; R79.1 Abnormal coagulation profile
CPT/HCPCS: 36415; 80053; 81001; 81003; 82570; 84156; 85025; 85610; 87086; 93971; 96365; 99283; 99284; J0696

== ENCOUNTER → 2023-07-01 11:34 | Outpatient (CLI) | payer MEDICARE, SELFPAY ==
[2023-07-01 13:00] LABS: INR 1.8 (0.9-1.3)
== END ==
PROVIDERS: PCP Family Medicine; Referring Provider Family Medicine; Visit Provider Family Medicine
DX: I82.409 Acute embolism and thrombosis of unspecified deep veins of unspecified lower extremity (principal)
CPT/HCPCS: 36415; 85610

== ENCOUNTER → 2023-07-14 11:28 | Outpatient (CLI) | payer MEDICARE, SELFPAY ==
[2023-07-14 13:06] LABS: INR 2.5 (0.9-1.3); Prothrombin Time 29.4 SECONDS (10.1-12.7)
== END ==
PROVIDERS: PCP Family Medicine; Referring Provider Family Medicine; Visit Provider Family Medicine
DX: I48.20 Chronic atrial fibrillation, unspecified (principal); Z79.01 Long term (current) use of anticoagulants
CPT/HCPCS: 36415; 85610

== ENCOUNTER → 2023-07-30 16:14 | Outpatient (CLI) | payer MEDICARE, SELFPAY ==
[2023-07-30 17:12] LABS: INR 2.3 (0.9-1.3); Prothrombin Time 26.4 SECONDS (10.1-12.7)
== END ==
PROVIDERS: PCP Family Medicine; Referring Provider Family Medicine; Visit Provider Family Medicine
DX: I48.20 Chronic atrial fibrillation, unspecified (principal); Z79.01 Long term (current) use of anticoagulants
CPT/HCPCS: 36415; 85610

== ENCOUNTER → 2023-09-02 13:42 | Outpatient (CLI) | payer OTHER, SELFPAY ==
[2023-09-02 15:17] LABS: INR 2.3 (0.9-1.3); Prothrombin Time 27.2 SECONDS (10.1-12.7)
== END ==
PROVIDERS: PCP Family Medicine; Referring Provider Family Medicine; Visit Provider Family Medicine
DX: D68.51 Activated protein C resistance (principal); Z79.01 Long term (current) use of anticoagulants
CPT/HCPCS: 36415; 85610

== ENCOUNTER → 2023-09-28 09:46 | Outpatient (CLI) | payer OTHER, SELFPAY ==
--- NOTE | 2023-09-28 09:47 | DI.RAD.S_ITS ---
PROCEDURE: XR LUMBAR SPINE MIN 4V INDICATIONS: BACK PAIN TECHNIQUE: 5 views of the lumbar spine were acquired, including bilateral oblique views. COMPARISON: [facility], MR, MR LUMBAR SPINE WO CON, 07/16/2022, 17:28. FINDINGS: Bones: 5 nonrib-bearing vertebrae are present. There is straightening of normal lumbar lordosis. Moderate multilevel spondylosis of the imaged spine with degenerative endplate changes, disc space loss, and prominent endplate osteophyte formation. Prominent calcifications of the anterior longitudinal ligament. Moderate mid and lower lumbar facet arthropathy. No acute vertebral body compression fractures. No suspicious bony lesions. Soft tissues: Overlying bowel gas pattern is normal. No suspicious soft tissue calcifications. Oblique images: No pars defects identified. IMPRESSION: Moderate multilevel spondylosis of the imaged spine most severe in the lower lumbar spine. No acute osseous abnormality seen. Straightening of lumbar lordosis. Dictated by: Frantz Coy M.D. on 09/28/2023 at 10:47 Approved by: Frantz Coy M.D. on 09/28/2023 at 10:50
== END ==
PROVIDERS: PCP Family Medicine; Referring Provider Physical Medicine & Rehabilitation; Visit Provider Physical Medicine & Rehabilitation
DX: M47.26 Other spondylosis with radiculopathy, lumbar region (principal); M51.17 Intervertebral disc disorders with radiculopathy, lumbosacral region; D68.51 Activated protein C resistance; G47.33 Obstructive sleep apnea (adult) (pediatric); Z79.01 Long term (current) use of anticoagulants
CPT/HCPCS: 72110; 99214

== ENCOUNTER → 2023-10-07 12:37 | Outpatient (CLI) | payer OTHER, SELFPAY ==
[2023-10-07 13:59] LABS: INR 2.5 (0.9-1.3); Prothrombin Time 29.4 SECONDS (10.1-12.7)
== END ==
PROVIDERS: PCP Family Medicine; Referring Provider Family Medicine; Visit Provider Family Medicine
DX: D68.51 Activated protein C resistance (principal); Z79.01 Long term (current) use of anticoagulants; I48.20 Chronic atrial fibrillation, unspecified
CPT/HCPCS: 36415; 85610

== ENCOUNTER 2023-10-29 14:00 | Outpatient (CLI) | payer MEDICARE, SELFPAY ==
[2023-10-29] VITALS (8 sets, daily range): BP systolic 119–140; BP diastolic 58–72; PULSE 60–75; RESP 13–19; TEMP 36.8; O2SAT 93–99
--- NOTE | 2023-10-29 14:30 | DI.RAD.S_ITS ---
PROCEDURE: PAIN L/S TRANSFORAM INJECT MICHELLE COMPARISON: None. INDICATIONS: SPONDYLOSIS FINDINGS: Fluoroscopic spot filming was performed to verify placement of spinal needles at the bilateral L5 -S1 transforaminal level(s), as labeled on the films. Appropriate location(s) of the needle tip(s) was confirmed by injection of iodinated contrast. IMPRESSION: Needle placement at bilateral L5-S1 levels with contrast injection. Dictated by: Addie Pierce M.D. on 10/29/2023 at 18:33 Approved by: Addie Pierce M.D. on 10/29/2023 at 18:35
[2023-10-29] MEDS: MIDAZOLAM 2 MG/2 ML VIAL IV (15:28)
[2023-10-29] MEDS: iopamidoL 15 ML VIAL 3 ML INJ (15:32)
[2023-10-29] MEDS: LIDOCAINE 1% 20 ML INJ (15:32)
[2023-10-29] MEDS: DEXAMETHASONE 10 MG/ML VIAL 20 MG INJ (15:32)
[2023-10-29] MEDS: BETAMETHASONE 30 MG/5 ML MDV 12 MG INJ (15:33)
--- NOTE | 2023-10-29 15:49 | PM.PROC.IR.1 ---
Date/Time/Diagnoses Date of procedure: 10/29/23 Time of procedure: 15:49 Pre-procedure diagnosis: 1. FORAMINAL STENOSIS WITH LE SYMPTOMS Post-procedure diagnosis: same Procedure Notes Procedure: 1. FLUOROSCOPICALLY GUIDED CONTRAST CONTROLLED TRANSFORAMINAL EPIDURAL STEROID INJECTION - BILATERAL L5/S1 TFESI Indications: Reginaldo is referred by Dr. Lindsey for treatment of Foraminal Stenosis with bilateral LE Symptoms Physician: Jermain Tubbs Total Fluoroscopy time (seconds): 16 Total sedation minutes: 16 Complications: none Procedure in detail & Post-procedure care: FINDINGS Foraminal Nerve Root Compression secondary to disc disease and facet hypertrophy DESCRIPTION OF PROCEDURE Following review of allergy and review of potential side effects and complications, including, but not necessarily limited to, infection, allergic reaction, local tissue breakdown, stroke, temporary or permanent nerve injury, paralysis, and possible , the patient indicated that the patient understood and agreed to proceed. An informed consent document was signed by the patient, witnessed by a nurse, and placed in the patient's chart. Additionally, other treatment options including medications, modalities, and physical therapy were reviewed with the patient. After review of previous anaesthesic history and IV conscious sedation the patient was deemed safe to proceed with today?s procedure with IV conscious sedation as ASA class II designation. Safety time-out was performed to confirm patient ID, procedure to be performed and site of procedure. IV sedation was accomplished with a combination of 2mg of Versed was administered by the RN after DO order, titrated to patient comfort during the course of the procedure while the patient remained responsive to all verbal commands In the prone position following sterile prep and drape of the lumbar region, the right L5/S1 posterior neuroforamen was identified fluoroscopically. The skin was anesthetized via a 25-gauge 1.5-inch needle with 1% lidocaine solution. At this point, a 25-gauge 3.5-inch spinal needle was atraumatically introduced and advanced under fluoroscopic guidance through the posterior right L5/S1 neuroforamen to approximately the anterior aspect of the canal. Depth was confirmed on lateral view. Following negative aspiration, injection of approximately 1.5cc of Isovue 200 under live fluoroscopy in the AP view confirmed excellent flow along the nerve root, into the epidural space without vascular or intrathecal uptake observed Radiological data, including multiple fluoroscopic views of the lumbosacral spine, reveal a spinal needle at the right L5/S1 posterior neuroforamen. Subsequent views show flow of contrast material flowing superiorly and inferiorly along the nerve root confirming epidural flow. Subsequently, a test dose of 1.5cc of 1% lidocaine solution was administered and patient was observed for two minutes for signs or symptoms of complications, including abdominal pain, shortness of breath, bilateral upper or lower extremity weakness, nausea and vomiting, prior to steroid injection. At this point, a total of 2cc or 10mg of dexamethasone and 6mg betamethasone was injected without incident. Attention was then refocused to the left L5/S1 level where the identical procedure was replicated. The procedure tolerated the procedure well without signs or symptoms of complications prior to transfer to the recovery area continued monitoring without incident. The patient was then transferred to the recovery area where they were observed for an appropriate time after the injection. The patient reported a VAS score of 7 prior to the procedure and a post-procedure VAS of 0. POST OP INSTRUCTIONS The patient was provided a Pain Log to continue to record their response to the target-specific procedure prior to follow-up visit with their referring physician. Additionally, specific post-injection care instructions and a contact number to our office were provided if concerns arise regarding possible complications associated with the procedure are suspected.
== END 2023-10-29 16:40 | disposition home or self-care (01) ==
PROVIDERS: PCP Family Medicine; Referring Provider Physical Medicine & Rehabilitation; Visit Provider Physical Medicine & Rehabilitation
DX: M48.07 Spinal stenosis, lumbosacral region (principal); M51.17 Intervertebral disc disorders with radiculopathy, lumbosacral region; M47.27 Other spondylosis with radiculopathy, lumbosacral region
CPT/HCPCS: 64483; 99152; J0702; J1100; J2250

== ENCOUNTER → 2023-11-04 13:13 | Outpatient (CLI) | payer MEDICARE, SELFPAY ==
[2023-11-04 14:01] LABS: Prothrombin Time 34.7 SECONDS (9.4-12.5)
== END ==
PROVIDERS: PCP Family Medicine; Referring Provider Family Medicine; Visit Provider Family Medicine
DX: Z79.01 Long term (current) use of anticoagulants (principal); I48.20 Chronic atrial fibrillation, unspecified
CPT/HCPCS: 36415; 85610

== ENCOUNTER → 2023-11-20 13:53 | Outpatient (CLI) | payer MEDICARE, SELFPAY ==
[2023-11-20 15:08] LABS: INR 3.3 (0.9-1.3); Prothrombin Time 38.5 SECONDS (9.4-12.5)
== END ==
PROVIDERS: PCP Family Medicine; Referring Provider Family Medicine; Visit Provider Family Medicine
DX: Z79.01 Long term (current) use of anticoagulants (principal); D68.51 Activated protein C resistance
CPT/HCPCS: 36415; 85610

== ENCOUNTER → 2023-12-07 12:08 | Outpatient (CLI) | payer OTHER, SELFPAY ==
[2023-12-07 14:00] LABS: INR 2.7 (0.9-1.3); Prothrombin Time 31.4 SECONDS (9.4-12.5)
== END ==
PROVIDERS: PCP Family Medicine; Referring Provider Family Medicine; Visit Provider Family Medicine
DX: I82.409 Acute embolism and thrombosis of unspecified deep veins of unspecified lower extremity (principal)
CPT/HCPCS: 36415; 85610

== ENCOUNTER → 2024-01-08 13:01 | Outpatient (CLI) | payer OTHER, SELFPAY ==
[2024-01-08 13:45] LABS: INR 2.4 (0.9-1.3); Prothrombin Time 28.2 SECONDS (9.4-12.5)
== END ==
PROVIDERS: PCP Family Medicine; Referring Provider Family Medicine; Visit Provider Family Medicine
DX: I82.409 Acute embolism and thrombosis of unspecified deep veins of unspecified lower extremity (principal)
CPT/HCPCS: 36415; 85610

== ENCOUNTER → 2024-02-09 11:08 | Outpatient (CLI) | payer OTHER, SELFPAY ==
[2024-02-09 12:24] LABS: Add Manual Diff / Slide Review NO; Basophils Absolute Auto 0 /uL (0-100); Basophils Percent Auto 0.8 % (0-2); Eosinophils Absolute Auto 200 /uL (0-450); Eosinophils Percent Auto 5.8 % (2-4); Hematocrit 43.7 % (41-53); Hemoglobin 14.7 g/dL (13.5-17.5); Lymphocytes Absolute Auto 800 /uL (1100-4500); Lymphocytes Percent Auto 21.5 % (25-40); Mean Corpuscular HGB Conc 33.7 % (30-36); Mean Corpuscular Hemoglobin 32.1 PG (26-34); Mean Corpuscular Volume 95.1 fL (80-100); Monocytes Absolute Auto 400 /uL (0-900); Monocytes Percent Auto 9.8 % (3-14); Neutrophils Absolute Auto 2300 /uL (1500-7000); Neutrophils Percent Auto 62.1 % (50-75); Platelet Count 154 X10^3/uL (150-400); Red Blood Cell Count 4.59 X10^6/uL (4.5-5.9); Red Cell Distribution Width 13.4 % (11.6-14.8); White Blood Cell Count 3.6 X10^3/uL (4.5-11.0)
[2024-02-09 12:27] LABS: Hemoglobin A1C% w Est Avg Glu 5.4 % (4.0-6.0)
[2024-02-09 12:47] LABS: INR 2.5 (0.9-1.3); Prothrombin Time 28.6 SECONDS (9.4-12.5)
[2024-02-09 13:04] LABS: Alanine Aminotransferase 10 IU/L (<50); Albumin 3.9 g/dL (3.5-5.0); Albumin Globulin Ratio 1.4 (1.0-2.8); Alkaline Phosphatase 64 U/L (38-126); Aspartate Aminotransferase 30 IU/L (17-59); BUN Creatinine Ratio 20.2 (6-22); Blood Urea Nitrogen 21 mg/dL (9-20); Calcium 8.9 mg/dL (8.4-10.2); Carbon Dioxide 26 mmol/L (22-32); Chloride 112 mmol/L (98-107); Estimated Glomerular Filt Rate > 60 mL/min (>60); Globulin 2.7 g/dL (1.7-4.1); Glucose 93 mg/dL (80-110); HEMOLYSIS 15 (0-50); Potassium 4.4 mmol/L (3.4-5.1); Sodium 142 mmol/L (137-145); Total Protein 6.6 g/dL (6.3-8.2)
[2024-02-09 13:05] LABS: Magnesium 1.9 mg/dL (1.6-2.3)
[2024-02-09 13:30] LABS: TSH w/ Reflex to FT4 1.45 uIU/mL (0.47-4.68)
== END ==
LOC: LAB 11:12
PROVIDERS: PCP Family Medicine; Referring Provider Internal Medicine Cardiovascular Disease; Visit Provider Internal Medicine Cardiovascular Disease
DX: I48.20 Chronic atrial fibrillation, unspecified (principal); E78.00 Pure hypercholesterolemia, unspecified; I48.0 Paroxysmal atrial fibrillation; I82.409 Acute embolism and thrombosis of unspecified deep veins of unspecified lower extremity
CPT/HCPCS: 36415; 80053; 83036; 83735; 84443; 85025; 85610

== ENCOUNTER → 2024-03-17 13:45 | Outpatient (CLI) | payer MEDICARE, SELFPAY ==
[2024-03-17 16:12] LABS: INR 2.8 (0.9-1.3); Prothrombin Time 32.2 SECONDS (9.4-12.5)
== END ==
PROVIDERS: PCP Family Medicine; Referring Provider Family Medicine; Visit Provider Family Medicine
DX: I82.409 Acute embolism and thrombosis of unspecified deep veins of unspecified lower extremity (principal)
CPT/HCPCS: 36415; 85610

== ENCOUNTER 2024-03-22 14:26 | Outpatient (CLI) | payer MEDICARE, SELFPAY ==
[2024-03-22] VITALS (9 sets, daily range): BP systolic 106–133; BP diastolic 59–77; PULSE 53–74; RESP 14–21; TEMP 36.3; O2SAT 95–97
--- NOTE | 2024-03-22 15:00 | DI.RAD.S_ITS ---
PROCEDURE: PAIN L/S TRANSFORAM INJECT MICHELLE COMPARISON: [facility], XA, PAIN L/S TRANSFORAM INJECT MICHELLE, 10/29/2023, 16:31. INDICATIONS: BILATERAL L3/4 TF ISAAK FINDINGS: Intraoperative fluoroscopic images shows injection needles placed bilaterally at L3-4 level. IMPRESSION: Fluoro guidance was provided intraoperatively for bilateral L3-4 transforaminal ISAAK performed by ordering physician. Dictated by: Jeancarlos Brito M.D. on 03/22/2024 at 17:30 Approved by: Jeancarlos Brito M.D. on 03/22/2024 at 17:31
[2024-03-22] MEDS: MIDAZOLAM 2 MG/2 ML VIAL IV (15:43)
[2024-03-22] MEDS: iopamidoL 15 ML VIAL 3 ML INJ (15:47)
[2024-03-22] MEDS: DEXAMETHASONE 10 MG/ML VIAL 20 MG INJ (15:48)
[2024-03-22] MEDS: BUPIVACAINE 0.25% (PF) VIAL 2 ML INJ (15:48)
[2024-03-22] MEDS: BETAMETHASONE 30 MG/5 ML MDV 12 MG INJ (15:48)
--- NOTE | 2024-03-22 16:02 | PM.PROC.IR.1 ---
Date/Time/Diagnoses Date of procedure: 03/22/24 Time of procedure: 16:02 Pre-procedure diagnosis: 1. FORAMINAL STENOSIS WITH LE SYMPTOMS Post-procedure diagnosis: same Procedure Notes Procedure: 1. FLUOROSCOPICALLY GUIDED CONTRAST CONTROLLED TRANSFORAMINAL EPIDURAL STEROID INJECTION - BILATERAL L3/4 TFESI Indications: Reginaldo is referred by Dr. Lindsey for treatment of Foraminal Stenosis with bilateral LE Symptoms Physician: Jermain Tubbs Total Fluoroscopy time (seconds): 13 Total sedation minutes: 12 Complications: none Procedure in detail & Post-procedure care: FINDINGS Foraminal Nerve Root Compression secondary to disc disease and facet hypertrophy DESCRIPTION OF PROCEDURE Following review of allergy and review of potential side effects and complications, including, but not necessarily limited to, infection, allergic reaction, local tissue breakdown, stroke, temporary or permanent nerve injury, paralysis, and possible , the patient indicated that the patient understood and agreed to proceed. An informed consent document was signed by the patient, witnessed by a nurse, and placed in the patient's chart. Additionally, other treatment options including medications, modalities, and physical therapy were reviewed with the patient. After review of previous anaesthesic history and IV conscious sedation the patient was deemed safe to proceed with today?s procedure with IV conscious sedation as ASA class II designation. Safety time-out was performed to confirm patient ID, procedure to be performed and site of procedure. IV sedation was accomplished with a combination of 2mg of Versed was administered by the RN after DO order, titrated to patient comfort during the course of the procedure while the patient remained responsive to all verbal commands In the prone position following sterile prep and drape of the lumbar region, the right L3/4 posterior neuroforamen was identified fluoroscopically. The skin was anesthetized via a 25-gauge 1.5-inch needle with 1% lidocaine solution. At this point, a 25-gauge 3.5-inch spinal needle was atraumatically introduced and advanced under fluoroscopic guidance through the posterior right L3/4 neuroforamen to approximately the anterior aspect of the canal. Depth was confirmed on lateral view. Following negative aspiration, injection of approximately 1.5cc of Isovue 200 under live fluoroscopy in the AP view confirmed excellent flow along the nerve root, into the epidural space without vascular or intrathecal uptake observed Radiological data, including multiple fluoroscopic views of the lumbosacral spine, reveal a spinal needle at the right L3/4 posterior neuroforamen. Subsequent views show flow of contrast material flowing superiorly and inferiorly along the nerve root confirming epidural flow. Subsequently, a test dose of 1.5cc of 1% lidocaine solution was administered and patient was observed for two minutes for signs or symptoms of complications, including abdominal pain, shortness of breath, bilateral upper or lower extremity weakness, nausea and vomiting, prior to steroid injection. At this point, a total of 2cc or 10mg of dexamethasone and 6mg betamethasone was injected without incident. Attention was then refocused to the left L3/4 level where the identical procedure was replicated. The procedure tolerated the procedure well without signs or symptoms of complications prior to transfer to the recovery area continued monitoring without incident. The patient was then transferred to the recovery area where they were observed for an appropriate time after the injection. The patient reported a VAS score of 7 prior to the procedure and a post-procedure VAS of 0. POST OP INSTRUCTIONS The patient was provided a Pain Log to continue to record their response to the target-specific procedure prior to follow-up visit with their referring physician. Additionally, specific post-injection care instructions and a contact number to our office were provided if concerns arise regarding possible complications associated with the procedure are suspected.
--- NOTE | 2024-03-22 16:11 | PC.NURSE ---
1603- patient returned post procedure noted to have soiled pants with urine. Patient has tingling to BLE and weakness but is able to move MIREILLE with out difficultly
--- NOTE | 2024-03-22 17:28 | PC.NURSE ---
1618- patient stood at chair, continues to move extremities, able to stand and move legs but continues to have weakness. 1700- patient stood continues to have some weakness but noting to improve. Patient declines to change pants into scrubs states I do not want too and would prefer to do it at home and be able to get a good clean. updated at this time. 1725- Dr Tubbs at chair, patient stood and able to take steps. Ambulation at baseline prior to procedure. Patient states I feel like I have more control over my legs. Continues to refuse to change soiled clothes prefers to do at home. Dr Tubbs ok to d/c at this time.
== END 2024-03-22 17:32 | disposition home or self-care (01) ==
PROVIDERS: PCP Family Medicine; Referring Provider Physical Medicine & Rehabilitation; Visit Provider Physical Medicine & Rehabilitation
DX: M48.061 Spinal stenosis, lumbar region without neurogenic claudication (principal); M51.16 Intervertebral disc disorders with radiculopathy, lumbar region; M47.26 Other spondylosis with radiculopathy, lumbar region
CPT/HCPCS: 64483; 99152; 99153; J0702; J1100; J2250; J3490

== ENCOUNTER → 2024-04-18 12:49 | Outpatient (CLI) | payer MEDICARE, SELFPAY ==
[2024-04-18 13:45] LABS: INR 2.7 (0.9-1.3); Prothrombin Time 30.9 SECONDS (9.4-12.5)
== END ==
LOC: LAB 12:49
PROVIDERS: PCP Family Medicine; Referring Provider Family Medicine; Visit Provider Family Medicine
DX: I48.20 Chronic atrial fibrillation, unspecified (principal); Z79.01 Long term (current) use of anticoagulants
CPT/HCPCS: 36415; 85610

== ENCOUNTER → 2024-05-19 14:38 | Outpatient (CLI) | payer MEDICARE, SELFPAY ==
[2024-05-19 16:08] LABS: INR 2.8 (0.9-1.3); Prothrombin Time 32.6 SECONDS (9.4-12.5)
== END ==
PROVIDERS: PCP Family Medicine; Referring Provider Family Medicine; Visit Provider Family Medicine
DX: D68.51 Activated protein C resistance (principal); Z79.01 Long term (current) use of anticoagulants; I48.20 Chronic atrial fibrillation, unspecified
CPT/HCPCS: 36415; 85610

== ENCOUNTER → 2024-06-22 13:39 | Outpatient (CLI) | payer MEDICARE, SELFPAY ==
[2024-06-22 14:28] LABS: INR 2.2 (0.9-1.3); Prothrombin Time 25.4 SECONDS (9.4-12.5)
== END ==
PROVIDERS: PCP Family Medicine; Referring Provider Family Medicine; Visit Provider Family Medicine
DX: Z79.01 Long term (current) use of anticoagulants (principal); D68.51 Activated protein C resistance; I48.20 Chronic atrial fibrillation, unspecified
CPT/HCPCS: 36415; 85610

== ENCOUNTER → 2024-07-21 17:24 | Outpatient (CLI) | payer MEDICARE, SELFPAY ==
[2024-07-21 18:02] LABS: Add Manual Diff / Slide Review NO; Basophils Absolute Auto 0 /uL (0-100); Basophils Percent Auto 0.7 % (0-2); Eosinophils Absolute Auto 300 /uL (0-450); Eosinophils Percent Auto 4.8 % (2-4); Hematocrit 45.2 % (41-53); Hemoglobin 15.2 g/dL (13.5-17.5); Lymphocytes Absolute Auto 1300 /uL (1100-4500); Lymphocytes Percent Auto 19.6 % (25-40); Mean Corpuscular HGB Conc 33.7 % (30-36); Mean Corpuscular Hemoglobin 32.7 PG (26-34); Monocytes Absolute Auto 500 /uL (0-900); Monocytes Percent Auto 8.3 % (3-14); Neutrophils Absolute Auto 4300 /uL (1500-7000); Neutrophils Percent Auto 66.6 % (50-75); Platelet Count 161 X10^3/uL (150-400); Red Blood Cell Count 4.66 X10^6/uL (4.5-5.9); Red Cell Distribution Width 14.3 % (11.6-14.8); White Blood Cell Count 6.4 X10^3/uL (4.5-11.0)
[2024-07-21 18:06] LABS: INR 2.5 (0.9-1.3); Prothrombin Time 28.9 SECONDS (9.4-12.5)
[2024-07-21 18:11] LABS: Alanine Aminotransferase 12 IU/L (<50); Albumin 3.7 g/dL (3.5-5.0); Albumin Globulin Ratio 1.3 (1.0-2.8); Alkaline Phosphatase 62 U/L (38-126); Aspartate Aminotransferase 25 IU/L (17-59); BUN Creatinine Ratio 22.8 (6-22); Bilirubin Total 0.9 mg/dL (0.2-1.3); Blood Urea Nitrogen 26 mg/dL (9-20); Calcium 8.8 mg/dL (8.4-10.2); Carbon Dioxide 27 mmol/L (22-32); Chloride 108 mmol/L (98-107); Estimated Glomerular Filt Rate > 60 mL/min (>60); Globulin 2.8 g/dL (1.7-4.1); Glucose 83 mg/dL (80-110); HEMOLYSIS < 15 (0-50); Potassium 4.8 mmol/L (3.4-5.1); Sodium 139 mmol/L (137-145); Total Protein 6.5 g/dL (6.3-8.2)
== END ==
LOC: LAB 17:24
PROVIDERS: PCP Family Medicine; Referring Provider Family Medicine; Visit Provider Family Medicine
DX: E78.00 Pure hypercholesterolemia, unspecified (principal); D68.51 Activated protein C resistance; Z79.01 Long term (current) use of anticoagulants; I48.20 Chronic atrial fibrillation, unspecified
CPT/HCPCS: 36415; 80053; 85025; 85610

== ENCOUNTER → 2024-08-25 12:16 | Outpatient (CLI) | payer MEDICARE, SELFPAY ==
[2024-08-25 12:58] LABS: INR 2.7 (0.9-1.3); Prothrombin Time 31.6 SECONDS (9.4-12.5)
== END ==
PROVIDERS: PCP Family Medicine; Referring Provider Family Medicine; Visit Provider Family Medicine
DX: D68.51 Activated protein C resistance (principal); Z79.01 Long term (current) use of anticoagulants; I48.20 Chronic atrial fibrillation, unspecified
CPT/HCPCS: 36415; 85610

== ENCOUNTER → 2024-09-21 15:19 | Outpatient (CLI) | payer MEDICARE, SELFPAY ==
[2024-09-21 16:34] LABS: Prothrombin Time 34.4 SECONDS (9.4-12.5)
== END ==
PROVIDERS: PCP Family Medicine; Referring Provider Family Medicine; Visit Provider Family Medicine
DX: D68.51 Activated protein C resistance (principal); M16.0 Bilateral primary osteoarthritis of hip; Z79.01 Long term (current) use of anticoagulants
CPT/HCPCS: 36415; 85610; 99214

== ENCOUNTER → 2024-10-24 11:56 | Outpatient (CLI) | payer MEDICARE, SELFPAY ==
[2024-10-24 13:21] LABS: INR 2.5 (0.9-1.3); Prothrombin Time 27.3 SECONDS (9.4-12.5)
== END ==
PROVIDERS: PCP Family Medicine; Referring Provider Family Medicine; Visit Provider Family Medicine
DX: Z79.01 Long term (current) use of anticoagulants (principal)
CPT/HCPCS: 36415; 85610

== ENCOUNTER → 2024-11-18 13:00 | Outpatient (CLI) | payer MEDICARE, SELFPAY ==
[2024-11-18 18:01] LABS: INR 2.3 (0.9-1.3)
== END ==
LOC: LAB 13:01
PROVIDERS: PCP Family Medicine; Referring Provider Family Medicine; Visit Provider Family Medicine
DX: Z79.01 Long term (current) use of anticoagulants (principal)
CPT/HCPCS: 36415; 85610

== ENCOUNTER 2024-12-20 07:22 | Outpatient (CLI) | payer OTHER, SELFPAY ==
[2024-12-20] VITALS (9 sets, daily range): BP systolic 107–130; BP diastolic 55–79; PULSE 66–87; RESP 12–24; TEMP 36.9; O2SAT 95–98
[2024-12-20] MEDS: MIDAZOLAM 2 MG/2 ML VIAL IV (08:23)
--- NOTE | 2024-12-20 08:23 | DI.RAD.S_ITS ---
PROCEDURE: PAIN L INTERLAMINAR/CAUDAL INJ INDICATIONS: LUMBAR STENOSIS COMPARISON: None. FINDINGS/IMPRESSION: Fluoroscopic spot filming was performed to verify placement of spinal needles at the L5-S1 level(s), as labeled on the films. Appropriate location(s) of the needle tip(s) was confirmed by injection of iodinated contrast. Dictated by: Ede Robles M.D. on 12/20/2024 at 12:03 Approved by: Ede Robles M.D. on 12/20/2024 at 12:03
[2024-12-20] MEDS: DEXAMETHASONE 10 MG/ML VIAL INJ (08:31)
[2024-12-20] MEDS: iopamidoL 15 ML VIAL 3 ML INJ (08:32)
[2024-12-20] MEDS: BUPIVACAINE 0.25% (PF) VIAL 2 ML INJ (08:32)
[2024-12-20] MEDS: BETAMETHASONE 30 MG/5 ML MDV 12 MG INJ (08:32)
--- NOTE | 2024-12-20 08:49 | P.PCN_ITS ---
Date/Time/Diagnoses Date of procedure: 12/20/24 Time of procedure: 08:49 Pre-procedure diagnosis: 1. HNP WITH RADICULAR FEATURES, 2. MULTILEVEL CENTRAL STENOSIS, Post-procedure diagnosis: same Procedure Notes Procedure: 1. FLUOROSCOPICALLY GUIDED CONTRAST CONTROLLED INTERLAMINAR EPIDURAL STEROID INJECTION - L5/S1 Indications: Reginaldo is referred by Dr. Lindsey for treatment of Bilateral Foraminal Stenosis L>R LE symptoms. Physician: Jermain Tubbs Total Fluoroscopy time (seconds): 5 Total sedation minutes: 14 Complications: none Procedure in detail & Post-procedure care: FINDINGS Multilevel Central Spinal Stenosis with Nerve Root Compression DESCRIPTION OF PROCEDURE Fluoroscopically guided, contrast-controlled L5/S1 translaminar epidural steroid injection. Following review of allergy and review of potential side effects and complications, including, but not necessarily limited to, infection, allergic reaction, local tissue breakdown, temporary as well as permanent nerve injury, paralysis, stroke and possible , the patient indicated that the patient understood and agreed to proceed. An informed consent document was signed by the patient, witnessed by a nurse, and placed in the patient's chart. Additionally, other treatment options including modalities, medications, and physical therapy were reviewed with the patient. After review of previous anaesthesic history and IV conscious sedation the patient was deemed safe to proceed with today?s procedure with IV conscious sedation as ASA class II designation. Safety time-out was performed to confirm patient ID, procedure to be performed and site of procedure. IV sedation was accomplished with a combination of 2mg of Versed administered by the RN after DO order, titrated to patient comfort during the course of the procedure while the patient remained responsive to all verbal commands. In the prone position, following sterile prep and drape of the lumbar region, the L5/S1 translaminar space was identified fluoroscopically. The skin was anesthetized via a 25-gauge, 1.5-inch needle with 1% lidocaine solution. At this point, a 22-gauge short bevel spinal needle was atraumatically introduced and advanced under fluoroscopic guidance into the region of the L5/S1 translaminar space. Depth was confirmed on lateral view. Radiological data, including multiple fluoroscopic views of the lumbar spine, reveal a spinal needle at the L5/S1 translaminar space. Lateral views then show placement of the needle in the epidural space. Subsequent views show contrast material flowing superiorly and inferiorly in the epidural space. No vascular or intrathecal uptake is observed. At this point, using loss of resistance technique with saline and air, the epidural space was entered. This was confirmed following negative aspiration with injection of approximately 1.5cc of Isovue 200, showing excellent epidural flow without vascular or intrathecal uptake. At this point, 1 cc of 1% lidocai ne solution combined with 2cc or 10mg of dexamethasone and 6mg of betamethasone was injected without incident. The patent tolerated the procedure without signs of symptoms of complications prior to transfer to the recovery area for further monitoring. The patient was then transferred to the recovery area where they were observed for an appropriate period of time after the injection. The patient reported a VAS score of 7 prior to the procedure and a post-procedure VAS of 0. POST OP INSTRUCTIONS The patient was provided a Pain Log to continue to record their response to the target-specific procedure prior to follow-up visit with their referring physician. Additionally, specific post-injection care instructions and a contact number to our office were provided if concerns arise regarding possible complications associated with the procedure are suspected.
== END 2024-12-20 09:06 | disposition home or self-care (01) ==
PROVIDERS: PCP Family Medicine; Referring Provider Physical Medicine & Rehabilitation; Visit Provider Physical Medicine & Rehabilitation
DX: M51.17 Intervertebral disc disorders with radiculopathy, lumbosacral region (principal); M48.07 Spinal stenosis, lumbosacral region
CPT/HCPCS: 62323; 99152; J0702; J1100; J2250; J3490

== ENCOUNTER → 2025-01-06 12:58 | Outpatient (CLI) | payer OTHER, SELFPAY ==
[2025-01-06 13:17] LABS: INR 2.8 (0.9-1.3); Prothrombin Time 31.1 SECONDS (9.4-12.5)
== END ==
PROVIDERS: PCP Family Medicine; Referring Provider Family Medicine; Visit Provider Family Medicine
DX: Z79.01 Long term (current) use of anticoagulants (principal)
CPT/HCPCS: 36415; 85610

== ENCOUNTER → 2025-02-08 15:50 | Outpatient (CLI) | payer OTHER, SELFPAY ==
[2025-02-08 16:24] LABS: Add Manual Diff / Slide Review NO; Basophils Absolute Auto 0 /uL (0-100); Eosinophils Absolute Auto 400 /uL (0-450); Eosinophils Percent Auto 8.4 % (2-4); Hematocrit 45.8 % (41-53); Hemoglobin 15.3 g/dL (13.5-17.5); Lymphocytes Absolute Auto 1100 /uL (1100-4500); Lymphocytes Percent Auto 23.1 % (25-40); Mean Corpuscular HGB Conc 33.4 % (30-36); Mean Corpuscular Hemoglobin 32.5 PG (26-34); Mean Corpuscular Volume 97.3 fL (80-100); Monocytes Absolute Auto 400 /uL (0-900); Monocytes Percent Auto 8.3 % (3-14); Neutrophils Absolute Auto 2700 /uL (1500-7000); Neutrophils Percent Auto 59.2 % (50-75); Platelet Count 167 X10^3/uL (150-400); Red Blood Cell Count 4.71 X10^6/uL (4.5-5.9); Red Cell Distribution Width 13.8 % (11.6-14.8); White Blood Cell Count 4.6 X10^3/uL (4.5-11.0)
[2025-02-08 16:39] LABS: Alanine Aminotransferase 16 IU/L (<50); Albumin 4.2 g/dL (3.5-5.0); Albumin Globulin Ratio 1.7 (1.0-2.8); Alkaline Phosphatase 67 U/L (38-126); Aspartate Aminotransferase 31 IU/L (17-59); BUN Creatinine Ratio 17.5 (6-22); Bilirubin Total 1.1 mg/dL (0.2-1.3); Blood Urea Nitrogen 20 mg/dL (9-20); Calcium 9.1 mg/dL (8.4-10.2); Carbon Dioxide 27 mmol/L (22-32); Chloride 107 mmol/L (98-107); Estimated Glomerular Filt Rate > 60 mL/min (>60); Globulin 2.5 g/dL (1.7-4.1); Glucose 91 mg/dL (80-110); HEMOLYSIS < 15 (0-50); Potassium 4.5 mmol/L (3.4-5.1); Sodium 141 mmol/L (137-145); Total Protein 6.7 g/dL (6.3-8.2)
[2025-02-08 16:48] LABS: NT-proBNP (BNP-Adult 18+) 181 pg/mL (<450)
[2025-02-08 17:11] LABS: TSH w/ Reflex to FT4 1.58 uIU/mL (0.47-4.68)
[2025-02-08 17:34] LABS: INR 3.1 (0.9-1.3)
== END ==
PROVIDERS: PCP Family Medicine; Referring Provider Family Medicine; Visit Provider Family Medicine
DX: E78.00 Pure hypercholesterolemia, unspecified (principal); Z79.01 Long term (current) use of anticoagulants; I50.9 Heart failure, unspecified; G47.33 Obstructive sleep apnea (adult) (pediatric); R60.9 Edema, unspecified; I25.10 Atherosclerotic heart disease of native coronary artery without angina pectoris; M16.0 Bilateral primary osteoarthritis of hip; D68.51 Activated protein C resistance; M51.27 Other intervertebral disc displacement, lumbosacral region; M25.561 Pain in right knee; M47.26 Other spondylosis with radiculopathy, lumbar region
CPT/HCPCS: 36415; 80053; 83880; 84443; 85025; 85610; 99214

== ENCOUNTER → 2025-03-09 12:32 | Outpatient (CLI) | payer OTHER, SELFPAY ==
--- NOTE | 2025-03-09 12:33 | DI.ECHO.S_ITS ---
[facility] : : [id number] : [place] : : [id number] : : Phone: [phone] Echocardiogram Report + + :Name: IAN TORO Study Date: 03/09/2025 Height: 77 in : :[facility] ReadingLocation: Weight: 250 lb: : Gender: Male BSA: 2.5 m2 : :: 1935 Age: 89 yrs : :Reason For Study: CONGESTIVE HEART FAILURE : :Ordering Physician: KESYHA, : :JENNIFER Performed By: Dejuan Arredondo : :Referring: JENNIFER CHOPRA : + + Interpretation Summary Sinus rhythm with frequent ectopy. The ejection fraction is estimated to be 55-60%. Diastolic parameters suggest probable normal left ventricular diastolic function and normal filling pressures. The right ventricle is borderline dilated. The right ventricular systolic function is normal. There is mild tricuspid regurgitation. Right ventricular systolic pressure is estimated to be 29 mmHg plus the clinically estimated CVP which cannot be estimated on this exam. Compared to the prior study 09/22/2018, no change. Procedure: A two-dimensional transthoracic echocardiogram with color flow and Doppler was performed. The study quality was technically good. Comparison is made with the echocardiogram of 09/22/2018. Sinus rhythm with frequent ectopy. Left Ventricle: The left ventricle is normal in size. There is normal left ventricular wall thickness. There is no ventricular septal defect visualized. The ejection fraction is estimated to be 55-60%. There are no focal wall motion abnormalities. Diastolic parameters suggest probable normal left ventricular diastolic function and normal filling pressures. Right Ventricle: The right ventricle is borderline dilated. The right ventricular systolic function is normal. Atria: The left atrial size is normal. Right atrial size is normal. The interatrial septum is not well visualized. Mitral Valve: The mitral valve leaflets appear normal. There is no evidence of stenosis, fluttering, or prolapse. There is trace mitral regurgitation. Aortic Valve: The aortic valve is trileaflet. The aortic valve opens well. There is no aortic valve stenosis. No aortic regurgitation is present. Tricuspid Valve: The tricuspid valve leaflets are thin and pliable. There is mild tricuspid regurgitation. Right ventricular systolic pressure is estimated to be 29 mmHg plus the clinically estimated CVP which cannot be estimated on this exam. Pulmonic Valve: The pulmonic valve leaflets are thin and pliable; valve motion is normal. There is no pulmonic valvular regurgitation. Great Vessels: The aortic root is mildly dilated. The dimensions of the ascending aorta are normal. The pulmonary artery is normal size. The inferior vena cava appeared normal. Pericardium/ Pleura There is no pericardial effusion. MMode/2D Measurements & Calculations LVIDd: 4.8 cm LVOT diam: 2.2 cm LVIDs: 3.0 cm Ao root diam: 3.9 cm FS: 37.8 % asc Aorta Diam: 3.6 cm EPSS: 0.81 cm IVSd: 0.92 cm LVPWd: 0.91 cm LV post. diameter/BSA (cm/m^2): 2.0 LV sys. diameter/BSA (cm/m^2): 1.2 LA A2 area: 22.2 cm2 RA long axis: 5.5 cm LA A4 area: 21.6 cm2 RA area: 18.3 cm2 LA length (vol): 6.5 cm RA vol: 51.7 ml LA vol: 62.1 ml RA : 21.0 ml/m2 LA vol index: 25.3 ml/m2 RVD1 (basal): 4.1 cm RVD2 (mid): 3.2 cm TAPSE: 2.1 cm Doppler Measurements & Calculations Ao V2 max: 117.3 cm/sec LVOT Max Pablito: 85.3 cm/sec Ao V2 mean: 83.8 cm/sec LV V1 max P.9 mmHg Ao max P.5 mmHg LV V1 VTI: 17.9 cm Ao mean P.1 mmHg LOBO(I,D): 3.1 cm2 Ao V2 VTI: 21.8 cm LOBO(V,D): 2.7 cm2 sev ratio: 0.82 LOBO indexed to BSA (cm^2/m^2): 1.2 MV E max pablito: 40.0 cm/sec TR max pablito: 269.8 cm/sec MV A max pablito: 50.4 cm/sec TR max P.2 mmHg MV E/A: 0.79 PA V2 max: 72.8 cm/sec Med Peak E' Pablito: 5.2 cm/sec PA V2 mean: 50.0 cm/sec E/E' med: 7.7 PA mean P.1 mmHg Lat Peak E' Pablito: 8.0 cm/sec PA pr(Accel): 8.8 mmHg E/E' lat: 5.0 E/e' average: 6.3 MV dec time: 0.33 sec SVLVOT): 66.6 ml Reading Physician:02:18 PM
== END ==
PROVIDERS: PCP Family Medicine; Referring Provider Family Medicine; Visit Provider Family Medicine
DX: I07.1 Rheumatic tricuspid insufficiency (principal); I50.9 Heart failure, unspecified; I77.89 Other specified disorders of arteries and arterioles
CPT/HCPCS: 93306

== ENCOUNTER → 2025-03-16 15:55 | Outpatient (CLI) | payer OTHER, SELFPAY ==
[2025-03-16 16:19] LABS: Bilirubin Urine UA NEGATIVE (NEGATIVE); Color Urine UA YELLOW; Glucose Urine UA NEGATIVE (Negative); Ketones Urine UA TRACE (NEGATIVE); Leukocyte Esterase Urine UA 3+ (NEGATIVE); Nitrite Urine UA POSITIVE (Negative); Occult Blood Urine UA 3+ (Negative); Protein Urine UA 2+ (Negative); Specific Gravity Urine UA 1.025 (1.000-1.035); Urobilinogen Urine UA 0.2 E.U./dL (0.2); pH Urine UA 5.5 (4.5-8.0)
[2025-03-16 16:30] LABS: Appearance Urine UA CLOUDY
[2025-03-16 16:33] LABS: Bacteria Urine Many (>30); Culture Indicated Urine Specimen Cultured; RBC Urine 1-5/HPF (0-5/HPF); Squamous Epithelial Cell Urine 0-1 /HPF (0-5/HPF); Urine Volume 10mL (spun); WBC Urine >100/HPF (0-5/HPF)
[2025-03-16 17:25] LABS: Prothrombin Time 67.1 SECONDS (9.4-12.5)
[2025-03-16 18:20] LABS: INR 6.2 (0.9-1.3)
== END ==
PROVIDERS: PCP Family Medicine; Referring Provider Family Medicine; Visit Provider Family Medicine
DX: R31.9 Hematuria, unspecified (principal); Z79.01 Long term (current) use of anticoagulants
CPT/HCPCS: 36415; 81001; 85610; 87077; 87086; 87186

== ENCOUNTER → 2025-03-27 15:08 | Outpatient (CLI) | payer OTHER, SELFPAY ==
[2025-03-27 16:09] LABS: Prothrombin Time 64.3 SECONDS (9.4-12.5)
[2025-03-27 16:29] LABS: INR 5.9 (0.9-1.3)
[2025-03-27 17:30] LABS: Appearance Urine UA CLEAR; Bilirubin Urine UA NEGATIVE (NEGATIVE); Color Urine UA YELLOW; Glucose Urine UA NEGATIVE (Negative); Ketones Urine UA NEGATIVE (NEGATIVE); Leukocyte Esterase Urine UA NEGATIVE (NEGATIVE); Nitrite Urine UA NEGATIVE (Negative); Occult Blood Urine UA NEGATIVE (Negative); Protein Urine UA NEGATIVE (Negative); Specific Gravity Urine UA >=1.030 (1.000-1.035); Urobilinogen Urine UA 0.2 E.U./dL (0.2); pH Urine UA 5.5 (4.5-8.0)
[2025-03-27 17:36] LABS: Bacteria Urine Occasional (0-1); RBC Urine None Seen (0-5/HPF); Squamous Epithelial Cell Urine 1-5 /HPF (0-5/HPF); Urine Volume 10mL (spun); WBC Urine 0-1/HPF (0-5/HPF)
[2025-03-27 17:37] LABS: Culture Indicated Urine Cult Not Indicated
== END ==
PROVIDERS: PCP Family Medicine; Referring Provider Family Medicine; Visit Provider Family Medicine
DX: Z79.01 Long term (current) use of anticoagulants (principal); N39.0 Urinary tract infection, site not specified
CPT/HCPCS: 36415; 81001; 85610

== ENCOUNTER → 2025-03-30 14:44 | Outpatient (CLI) | payer OTHER, SELFPAY ==
[2025-03-30 16:33] LABS: INR 2.4 (0.9-1.3); Prothrombin Time 26.8 SECONDS (9.4-12.5)
== END ==
LOC: LAB 14:44
PROVIDERS: PCP Family Medicine; Referring Provider Family Medicine; Visit Provider Family Medicine
DX: Z79.01 Long term (current) use of anticoagulants (principal)
CPT/HCPCS: 36415; 85610

== ENCOUNTER → 2025-04-03 12:13 | Outpatient (CLI) | payer OTHER, SELFPAY ==
[2025-04-03 12:55] LABS: INR 1.9 (0.9-1.3); Prothrombin Time 20.7 SECONDS (9.4-12.5)
== END ==
PROVIDERS: PCP Family Medicine; Referring Provider Family Medicine; Visit Provider Family Medicine
DX: D68.51 Activated protein C resistance (principal); I48.20 Chronic atrial fibrillation, unspecified; Z79.01 Long term (current) use of anticoagulants
CPT/HCPCS: 36415; 85610

== ENCOUNTER → 2025-04-10 11:10 | Outpatient (CLI) | payer OTHER, SELFPAY ==
[2025-04-10 12:45] LABS: INR 1.4 (0.9-1.3); Prothrombin Time 15.7 SECONDS (9.4-12.5)
== END ==
LOC: LAB 11:10
PROVIDERS: PCP Family Medicine; Referring Provider Family Medicine; Visit Provider Family Medicine
DX: Z79.01 Long term (current) use of anticoagulants (principal)
CPT/HCPCS: 36415; 85610

== ENCOUNTER → 2025-04-17 09:53 | Outpatient (CLI) | payer OTHER, SELFPAY ==
[2025-04-17 10:37] LABS: INR 1.5 (0.9-1.3); Prothrombin Time 17.2 SECONDS (9.4-12.5)
== END ==
PROVIDERS: PCP Family Medicine; Referring Provider Family Medicine; Visit Provider Family Medicine
DX: Z79.01 Long term (current) use of anticoagulants (principal)
CPT/HCPCS: 36415; 85610

== ENCOUNTER → 2025-04-25 10:28 | Outpatient (CLI) | payer OTHER, SELFPAY ==
[2025-04-25 11:42] LABS: Prothrombin Time 21.8 SECONDS (9.4-12.5)
== END ==
PROVIDERS: PCP Family Medicine; Referring Provider Family Medicine; Visit Provider Family Medicine
DX: Z79.01 Long term (current) use of anticoagulants (principal)
CPT/HCPCS: 36415; 85610

== ENCOUNTER → 2025-05-08 10:56 | Outpatient (CLI) | payer OTHER, SELFPAY ==
[2025-05-08 12:13] LABS: INR 2.2 (0.9-1.3); Prothrombin Time 24.4 SECONDS (9.4-12.5)
== END ==
PROVIDERS: PCP Family Medicine; Referring Provider Family Medicine; Visit Provider Family Medicine
DX: Z79.01 Long term (current) use of anticoagulants (principal)
CPT/HCPCS: 36415; 85610

== ENCOUNTER → 2025-05-25 12:07 | Outpatient (CLI) | payer OTHER, SELFPAY ==
[2025-05-25 12:57] LABS: INR 2.7 (0.9-1.3); Prothrombin Time 29.5 SECONDS (9.4-12.5)
== END ==
PROVIDERS: PCP Family Medicine; Referring Provider Family Medicine; Visit Provider Family Medicine
DX: Z79.01 Long term (current) use of anticoagulants (principal)
CPT/HCPCS: 36415; 85610

== ENCOUNTER → 2025-06-23 13:33 | Outpatient (CLI) | payer OTHER, SELFPAY ==
[2025-06-23 14:17] LABS: INR 2.2 (0.9-1.3); Prothrombin Time 24.6 SECONDS (9.4-12.5)
== END ==
PROVIDERS: PCP Family Medicine; Referring Provider Family Medicine; Visit Provider Family Medicine
DX: Z79.01 Long term (current) use of anticoagulants (principal)
CPT/HCPCS: 36415; 85610

== ENCOUNTER → 2025-08-24 14:54 | Outpatient (CLI) | payer OTHER, SELFPAY ==
[2025-08-24 16:15] LABS: INR 2.2 (0.9-1.3); Prothrombin Time 24.5 SECONDS (9.4-12.5)
== END ==
PROVIDERS: PCP Family Medicine; Referring Provider Family Medicine; Visit Provider Family Medicine
DX: Z79.01 Long term (current) use of anticoagulants (principal)
CPT/HCPCS: 36415; 85610

== ENCOUNTER → 2025-09-26 13:32 | Outpatient (CLI) | payer OTHER, SELFPAY ==
--- NOTE | 2025-09-26 13:33 | DI.MRI.S_ITS ---
PROCEDURE: MR LUMBAR SPINE WO CON INDICATIONS: bulging discs, pain TECHNIQUE: Noncontrast sagittal T1 spin echo and T2 fast echo, sagittal STIR, and T2 fast spin echo through the lumbar spine. In cases with scoliosis, additional coronal T2 fast spin echo may be performed. COMPARISON: [facility], MR, MR LUMBAR SPINE WO CON, 07/16/2022, 17:28. FINDINGS: Image quality: Excellent. Alignment and Curvature: Straightening of the normal lumbar lordosis. Mild retrolisthesis of L3 on L4 and L4 on L5. Bone Marrow: Degenerative endplate changes. Marrow is of normal overall signal. No acute vertebral body compression fractures. Spinal Cord: Conus medullaris terminates at the T12-L1 level. Visualized cord demonstrates normal signal and size. Paraspinous Soft Tissues: No paravertebral masses. Large bilateral simple appearing renal cysts, not completely visualized. An indeterminate left renal lesion demonstrating heterogeneous T2 hypointense signal measuring 4.8 cm is only partially visualized (/24). T12-L1: Disc desiccation. No central canal or neural foraminal stenosis. L1-L2: Disc desiccation and facet arthropathy. No central canal or neural foraminal stenosis. L2-L3: Disc desiccation height loss. Facet arthropathy. No central canal or neural foraminal stenosis. L3-L4: Disc desiccation and mild diffuse disc bulge with small central disc protrusion. Facet arthropathy. No significant central canal stenosis. Far right lateral disc bulge is redemonstrated. Moderate right and no significant left neural foraminal stenosis. L4-L5: Disc desiccation and moderate height loss. Diffuse disc bulge. Facet arthropathy. Mild central canal stenosis. Mild right and moderate left neural foraminal stenosis is stable. L5-S1: Disc desiccation and diffuse disc bulge. Left subarticular disc extrusion is decreased compared to prior. Narrowing of the left lateral recess is decreased compared to prior. No significant central canal stenosis. Moderate to severe bilateral neural foraminal stenosis is progressed with flattening of the exiting nerve roots. IMPRESSION: 1. Multilevel degenerative changes of the lumbar spine as described above with progression at L5-S1. 2. Moderate to severe bilateral neural foraminal stenosis at L5-S1. 3. Mild central canal stenosis at L4-5. 4. Previous left subarticular disc extrusion at L5-S1 is decreased in size. Dictated by: Larry Antonio M.D. on 09/26/2025 at 16:42 Approved by: Larry Antonio M.D. on 09/26/2025 at 16:47
== END ==
PROVIDERS: PCP Family Medicine; Referring Provider Family Medicine; Visit Provider Family Medicine
DX: M47.26 Other spondylosis with radiculopathy, lumbar region (principal); M47.27 Other spondylosis with radiculopathy, lumbosacral region; M51.16 Intervertebral disc disorders with radiculopathy, lumbar region; M51.17 Intervertebral disc disorders with radiculopathy, lumbosacral region; M48.061 Spinal stenosis, lumbar region without neurogenic claudication; M48.07 Spinal stenosis, lumbosacral region; N28.9 Disorder of kidney and ureter, unspecified
CPT/HCPCS: 72148

== ENCOUNTER → 2025-09-26 15:06 | Outpatient (CLI) | payer OTHER, SELFPAY ==
[2025-09-26 15:49] LABS: INR 1.6 (0.9-1.3); Prothrombin Time 18.1 SECONDS (9.4-12.5)
== END ==
PROVIDERS: PCP Family Medicine; Referring Provider Family Medicine; Visit Provider Family Medicine
DX: D68.51 Activated protein C resistance (principal); I48.20 Chronic atrial fibrillation, unspecified; Z79.01 Long term (current) use of anticoagulants
CPT/HCPCS: 36415; 85610

== ENCOUNTER → 2025-10-20 13:18 | Outpatient (CLI) | payer OTHER, SELFPAY ==
--- NOTE | 2025-10-20 13:24 | DI.MRI.S_ITS ---
PROCEDURE: MR ABDOMEN RENAL PROTOCOL INDICATIONS: new mass left kidney, cc Dr. Tatum with results TECHNIQUE: Coronal HASTE through abdomen and pelvis; axial 2D FLASH in- and [id number] (with and without fat saturation), and breath-hold T2 FSE from the hepatic dome to the bottom of the kidneys. Coronal HASTE MR urogram of kidneys and bladder. Dynamic coronal VIBE during IV gadolinium administration; postgadolinium axial VIBE or 2D FLASH with fat saturation from the hepatic dome through the kidneys. COMPARISON: [facility], MR, MR LUMBAR SPINE WO CON, 09/26/2025, 14:23. FINDINGS: Image quality: Diagnostic Lower chest: Unremarkable lung bases Liver: Multiple cysts. Gallbladder and biliary system: Unremarkable, nondilated Pancreas: Mildly ectatic pancreatic duct. Mild parenchymal atrophy. Spleen: Nonenlarged Adrenals: No discrete nodules Kidneys: Numerous renal cysts. The largest cyst cluster in the right upper pole measures in aggregate 13 cm. A simple cyst is seen at the left upper pole measuring up to 12.5 cm. These do not show enhancing nodules. Thin septations are present. In the left lower pole, there is a 6 x 5.6 cm lesion with intrinsic T1 signal, internal heterogeneity, and T2 hypointense signal. A mildly thick septation with enhancement is seen at the lateral aspect measuring about 4 mm. Vessels and lymph nodes: The main portal vein is patent. No abdominal aneurysm. No lymphadenopathy by size criteria. Bowel and peritoneum: No bowel obstruction. No drainable ascites. Moderate colonic fecal loading Body wall: Unremarkable Bones: There are degenerative osseous changes. IMPRESSION: Heterogeneous left lower pole renal lesion measuring up to 6 cm with a mildly thickened enhancing septation. Internal low T2 and high T1 signal compatible with hemorrhagic contents. No nodular enhancement. Bosniak 3: These have intermediate suspicion for malignancy. Urologic follow- up in consultation suggested. 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 The left renal vein is patent. No hydronephrosis. Dictated by: Sedrick Severino M.D. on 10/20/2025 at 14:34 Approved by: Sedrick Severino M.D. on 10/20/2025 at 14:44
[2025-10-20 13:56] LABS: INR 3.4 (0.9-1.3); Prothrombin Time 37.8 SECONDS (9.4-12.5)
== END ==
LOC: MRI 13:23
PROVIDERS: PCP Family Medicine; Referring Provider Family Medicine; Visit Provider Family Medicine
DX: N28.89 Other specified disorders of kidney and ureter (principal); N28.1 Cyst of kidney, acquired; Z79.01 Long term (current) use of anticoagulants
CPT/HCPCS: 36415; 74183; 85610; A9579

== ENCOUNTER → 2025-11-02 12:46 | Outpatient (CLI) | payer OTHER, SELFPAY ==
[2025-11-02 13:46] LABS: INR 2.9 (0.9-1.3); Prothrombin Time 32.3 SECONDS (9.4-12.5)
== END ==
PROVIDERS: PCP Family Medicine; Referring Provider Family Medicine; Visit Provider Family Medicine
DX: I48.20 Chronic atrial fibrillation, unspecified (principal); D68.51 Activated protein C resistance; Z79.01 Long term (current) use of anticoagulants
CPT/HCPCS: 36415; 85610